=== PATIENT | female | born 1980 | race Caucasian/White ===

== ENCOUNTER 2017-02-15 09:45 | Emergency (ER) | payer MEDICARE, OTHER ==
[~2017-02-15] VITALS: Ht 160 cm; Wt 74.0 kg
[~2017-02-15 09:45] MED LIST: PERM5CRE TOP; PRED20 PO
[2017-02-15 09:51] VITALS: BP 133/81; PULSE 83; RESP 18; TEMP 98; O2SAT 97
--- NOTE | 2017-02-15 10:39 | PD ---
HPI Chief Complaint: Skin Problem Time Seen by Provider: 10:35 Travel History International Travel<30 days: No Contact w/Intl Traveler<30days: No History of Present Illness HPI 36-year-old female presents to the emergency Department with complaint of a lump to her left upper arm that is there for about a month. Denies fever, vomiting. Denies drainage from the site. Has not taken any medications to alleviate her symptoms. Has tried squeezing it to drain it without success. Says that it's itchy. No known allergies. Has no other medical complaints. No other modifying factors or associated signs and symptoms. History Past Medical Histgory Tetanus Vaccination: > 5 Years Social History Alcohol Use: No Tobacco Use: Yes (PPD) Allergies-Medications (Allergen,Severity, Reaction): Coded Allergies: No Known Allergies (Verified , 06/25/16) Reported Meds & Prescriptions Reported Meds & Active Scripts Active Deltasone (Prednisone) 20 Mg Tab 20 Mg PO BID 5 Days Elimite (Permethrin) 5 % Cr 60 Gm TOP DIRECTED PATIENT INSTRUCTIONS: THOROUGHLY MASSAGE ELIMITE (PERMETHRIN) 5% CREAM INTO THE SKIN FROM HEAD TO TOE COVERING ALL EXTERNAL BODY PARTS. THE CREAM SHOULD BE REMOVED BY WASHING (SHOWER OR BATH) 8 TO 14 HOURS AFTER APPLICATION. PATIENTS MAY EXPERIENCE ITCHING AFTER TREATMENT AND IS RARELY A SIGN OF TREATMENT FAILURE. Review of Systems Except as stated in HPI: all other systems reviewed are Neg Physical Exam Narrative GENERAL: Well-nourished, well-developed female patient, in no acute distress; afebrile, nontoxic-appearing SKIN: Warm and dry. Approximately 1 cm in diameter soft lump to the left bicep area; without erythema, drainage; without warm to touch; no signs of infection. HEAD: Atraumatic. Normocephalic. EYES: Pupils equal and round. No scleral icterus. No injection or drainage. ENT: Mucosa pink and moist. Airway patent. NECK: Trachea midline. CARDIOVASCULAR: Regular rate. RESPIRATORY: No accessory muscle use. GASTROINTESTINAL: Rounded. MUSCULOSKELETAL: No obvious deformities. No clubbing. No cyanosis. No edema. NEUROLOGICAL: Awake and alert. Oriented 3. No obvious cranial nerve deficits. Motor grossly within normal limits. Normal speech. PSYCHIATRIC: Appropriate mood and affect; insight and judgment normal. Data Data Last Documented VS Vital Signs Date Time Temp Pulse Resp B/P Pulse Ox O2 Delivery O2 Flow Rate FiO2 02/15/17 09:51 98.0 83 18 133/81 97 Room Air MDM Medical Screen Exam Complete: Yes Emergency Medical Condition: No Differential Diagnosis Basal cell carcinoma, melanoma, nonspecific lump Narrative Course 36-year-old female with a lump to her left bicep area times one month. It is approximately 1 cm in diameter and without signs of infection. The area is nontender. Patient reports it is itchy. She is afebrile and nontoxic- appearing. Denies fever or vomiting. Instructed patient to follow up with dermatology. Vital signs are stable and the patient is stable for outpatient follow-up and treatment. The patient has no urgent or emergent medical complaints. There is no emergent or urgent medical need at this time. I instructed the patient to follow up with their primary care provider. A medical screening exam was performed: At the time of evaluation the presenting medical condition was determined not to be of an emergent nature. The patient was given the option of receiving additional care, but declined. Patient was given options for additional community resources from which to obtain care. The Patient Has Been advised to seek medical attention for their presenting complaint. The patient has been advised to return to the ER at any time if an emergent condition develops. Primary Impression: Encounter for medical screening examination Condition: Stable Blanquita Marie February 15, 2017 10:39
[2017-03-08] MEDS ORDERED: IBUP200C PO (08:59)
[2017-03-08] MEDS ORDERED: CYCL5TAB PO (08:59)
== END 2017-02-15 10:44 | disposition left against medical advice (07) ==
LOC: NEPK 09:45
DX: R22.32 Localized swelling, mass and lump, left upper limb (principal)
CPT/HCPCS: 99281

== ENCOUNTER → 2017-03-31 | Outpatient (CLI) | payer MEDICARE, OTHER ==
[~2017-03-31] MED LIST changes: +CYCL5TAB PO; +IBUP200C PO; -PERM5CRE TOP; -PRED20 PO
[2017-03-31 08:41] LABS: AUTOMATED NEUTROPHIL # 3.7 TH/MM3 (1.8-7.7); BASOPHIL # 0.1 TH/MM3 (0-0.2); BASOPHIL % 0.9 % (0.0-2.0); EOSINOPHIL # 0.5 TH/MM3 (0-0.4); EOSINOPHIL % 6.8 % (0.0-4.0); HEMATOCRIT 37.5 % (35.0-46.0); HEMO FLAGS DIFF FINAL; LYMPH % 31.2 % (9.0-44.0); LYMPHOCYTE # 2.2 TH/MM3 (1.0-4.8); MEAN CELL VOLUME 90.1 FL (80.0-100.0); MEAN CORPUSCULAR HEMOGLOBIN 29.4 PG (27.0-34.0); MEAN CORPUSCULAR HGB CONC 32.6 % (32.0-36.0); MONO % 8.4 % (0.0-8.0); NEUT % 52.7 % (16.0-70.0); PLATELET COUNT 452 TH/MM3 (150-450); RED BLOOD COUNT 4.16 MIL/MM3 (4.00-5.30); RED CELL DISTRIBUTION WIDTH 13.3 % (11.6-17.2)
== END ==
LOC: CPRE 07:57
PROVIDERS: ATTEND Surgery
DX: Z01.812 Encounter for preprocedural laboratory examination (principal); C43.62 Malignant melanoma of left upper limb, including shoulder
CPT/HCPCS: 36415; 85025

== ENCOUNTER 2017-04-08 18:28 | Emergency (ER) | payer MEDICARE, OTHER ==
[~2017-04-08] VITALS: Ht 157.5 cm; Wt 70.0 kg
[2017-04-08 18:30] VITALS: BP 115/59; PULSE 92; RESP 20; TEMP 97.5; O2SAT 98
--- NOTE | 2017-04-08 18:43 | PD ---
Physical Exam Time Seen by Provider: 18:37 Narrative 36yo F requesting reevaluation of her surgical site after removal of melanoma and lymph node removal of L upper arm and armpit today. Surgery done by Dr. Mckeon. Patient unaware of discharge instructions. Was discharged from third floor Same day surgery about an hour ago. Concerned because of bandage in armpit having drainage through it and wants it looked at. Reports nausea w/o vomiting. Denies fever. Patient seen in triage. VS reviewed. Patient awaiting bed placement. Data Data Last Documented VS Vital Signs Date Time Temp Pulse Resp B/P Pulse Ox O2 Delivery O2 Flow Rate FiO2 04/08/17 18:30 97.5 92 20 115/59 98 Room Air MDM Supervised Visit with DILEEP: No Scripts No Active Prescriptions or Reported Meds Blanquita Marie Apr 08, 2017 18:43
--- NOTE | 2017-04-08 20:26 | PD ---
HPI Chief Complaint: Skin Problem Time Seen by Provider: 20:24 Travel History International Travel<30 days: No Contact w/Intl Traveler<30days: No Traveled to known affect area: No History of Present Illness HPI Patient comes emergency Department requesting a dressing be tapered back down from surgery that was done today as an outpatient. Patient states that the dressing is starting to come off and she is wanting it taped back down. Patient denies any pain with this. Patient is doing anything for this. Denies anything making it better or worse. Denies any fevers, chest pain, shortness of breath, or other concerns. Patient states that she was given dressing changes instructions and has a follow-up appointment with her surgeon already. PFSH Past Medical History Cancer: Yes (MELANOMA) Cardiovascular Problems: No Diminished Hearing: No Endocrine: No Genitourinary: No Hepatitis: No Hiatal Hernia: No Immune Disorder: No Musculoskeletal: Yes (MID BACK PAIN) Neurologic: No Psychiatric: Yes ("VERY" NERVOUS) Reproductive: No Respiratory: No Tetanus Vaccination: Never Vaccinated Influenza Vaccination: No ?: Not : 6 Para: 4 Miscarriage: 1 : 1 Tubal Ligation: Yes Past Surgical History Abdominal Surgery: No AICD: No Body Medical Devices: NONE Cardiac Surgery: No Section: Yes (X4) Ear Surgery: No Endocrine Surgery: No Eye Surgery: No Genitourinary Surgery: No Gynecologic Surgery: Yes (4 C SECTION, TL) Joint Replacement: No Oral Surgery: No Pacemaker: No Thoracic Surgery: No Tonsillectomy: Yes Other Surgery: Yes (MELENOMA REMOVED 04/08/17) Social History Alcohol Use: No Tobacco Use: Yes (PPD) Substance Use: No Allergies-Medications (Allergen,Severity, Reaction): Coded Allergies: No Known Allergies (Verified , 04/08/17) Reported Meds & Prescriptions Reported Meds & Active Scripts Active No Active Prescriptions or Reported Medications Review of Systems Except as stated in HPI: all other systems reviewed are Neg Physical Exam Narrative GENERAL: Well-developed, well nourished, in no acute distress, and non-ill appearing. SKIN: Focused skin assessment warm and dry. Patient has dressing over left axilla was scant amount of serosanguineous fluid with a small area that is not taped down. HEAD: Atraumatic. Normocephalic. EYES: Pupils equal and round. EOMI. No scleral icterus. No injection or drainage. ENT: No nasal bleeding or discharge. Mucous membranes pink and moist. NECK: Trachea midline. Supple. No nuclear rigidity. RESPIRATORY: No accessory muscle use. No respiratory distress. MUSCULOSKELETAL: No obvious deformities. No clubbing. No cyanosis. No edema. Full range of motion. NEUROLOGICAL: Awake and alert. No obvious cranial nerve deficits. Motor grossly within normal limits. Normal speech. PSYCHIATRIC: Appropriate mood and affect; insight and judgment normal. Data Data Last Documented VS Vital Signs Date Time Temp Pulse Resp B/P Pulse Ox O2 Delivery O2 Flow Rate FiO2 04/08/17 18:30 97.5 92 20 115/59 98 Room Air Orders Wound Care (04/08/17 20:23) MDM Medical Decision Making Medical Screen Exam Complete: Yes Emergency Medical Condition: No Differential Diagnosis Wound check, dressing change, other Narrative Course Patient in no obvious distress upon re-evaluation. Any questions/concerns in reference to patient diagnosis/condition discussed and clarified prior to patient's discharge. Reinforced sheer importance of close follow up with surgeon. Instructed patient to return to ED immediately, if symptoms return/ worsen. Pt showed understanding of above instructions. Further instructions and recommendations were detailed in discharge paperwork. Pt ambulated without difficulty out of ED at discharge. Diagnosis Primary Impression: Encounter for postoperative wound check Additional Instructions: Follow-up with your surgeon as scheduled. Do wound care and dressing changes as instructed by your surgeon. Return to the emergency department if symptoms get worse. Scripts No Active Prescriptions or Reported Meds Disposition: 01 DISCHARGE HOME Condition: Stable Mal Aly Apr 08, 2017 20:26
== END 2017-04-08 20:42 | disposition home or self-care (01) ==
LOC: NEPD 18:28
DX: Z51.89 Encounter for other specified aftercare (principal); C43.9 Malignant melanoma of skin, unspecified; F17.200 Nicotine dependence, unspecified, uncomplicated
CPT/HCPCS: 99281

== ENCOUNTER → 2017-04-08 | Day surgery (SDC) | payer MEDICARE, OTHER ==
[~2017-04-08] VITALS: Ht 157.5 cm; Wt 74.2 kg
[~2017-04-08] MED LIST changes: +ACETAMINOPHEN 1000 MG/100 ML VIAL IV SCH; +BACITRACIN TOP OINT 15 GM TUBE ONE; +BACT800T5 PO; +BUPIVACAINE/EPINEPHRINE 0.5% 50 ML VIAL ONE; +CHLORHEXIDINE GLUCONATE 2 % 1 PACK (2 CLOTHS) TOPICAL PRN; -CYCL5TAB PO; +DO NOT ADM ANY ANTICOAGULANT DRUGS PRN; +DOXY100C PO; +EPINEPHrine HCL (1:1000) 1 MG/ML VIAL ONE; +FAMOTIDINE 20 MG/2 ML VIAL ONE; +HYDR-3533 PO; -IBUP200C PO; +INSULIN HUMAN REGULAR 1,000 UNITS/10 ML VIAL SQ PRN; +KETO10 PO; +KETOROLAC TROMETHAMINE 30 MG/ML (IVP) VIAL IV PUSH ONE; +KETOROLAC TROMETHAMINE 60 MG/2 ML (IM) VIAL IM ONE; +LACTATED RINGER'S 1000 ML INJ 1,000 ML IV ONE; +LACTATED RINGER'S 1000 ML IV PRN; +LIDOCAINE 1%/EPINEPHrine 1:100,000 SOLN 20 ML VIAL ONE; +METOPROLOL TARTRATE 25 MG TAB PO PRN; +MIDAZOLAM HCL 2 MG/2 ML VIAL ONE; +MINERAL OIL 10 ML VIAL ONE; +MORPHINE SULFATE 4 MG/ML INJ IV PRN; +MORPHINE SULFATE 4 MG/ML INJ ONE; +NEOSTIGMINE 3 MG/3 ML SYR IV ONE; +ONDANSETRON HCL 4 MG/2 ML VIAL IV PRN; +ONDANSETRON HCL 4 MG/2 ML VIAL IV PUSH ONE; +PERC5TAB12 PO; +POVIDONE IODINE 5% (ANTISEPSIS KIT) 4 APPLICATIONS EACH NARE PRN; +PROPOFOL 200 MG/20 ML AMP IV ONE; +SODIUM BICARBONATE 8.4% INJ 50 ML ONE; +SODIUM CHLORID 0.9% 500 ML IV PRN; +ceFAZolin 2 GM PREMIX 50 ML IV SCH; +fentaNYL CITRATE 250 MCG/5 ML AMP ONE; +oxyCODONE/ACETAMINOPHEN 5 MG/325 MG TAB PO PRN
[2017-04-08 07:32] VITALS: BP 147/92; PULSE 70; RESP 16; TEMP 98.1; O2SAT 100
--- NOTE | 2017-04-08 09:56 | RADRPT ---
EXAM DATE/TIME: 04/08/2017 08:10 [facility] COMPARISON: No previous studies available for comparison. INDICATIONS : Left upper arm melanoma. DOSE: 1.1 mCi Tc99m Sulfur Colloid INJECTION SITE: Left Upper arm IMAGING: SPECT/CT imaging with fusion was performed. RADIATION DOSE: 2.95 CTDIvol (mGy) MEDICAL HISTORY : Melanoma. SURGICAL HISTORY : Tonsillectomy. Tubal ligation. section. ENCOUNTER: Initial ACUITY: 1 day PAIN SCALE: 0/10 LOCATION: Left arm TECHNIQUE: Multiple injections were made per protocol. Lymphangiogram phase was obtained in addition to delayed spot views. FINDINGS: Focal hypermetabolic activity was noted in the left axillary area. This was marked prior to surgery. CONCLUSION: Left axillary area was marked. Tono Lopez MD on April 08, 2017 at 9:54 Board Certified Radiologist. This report was verified electronically.
[2017-04-08 14:57] VITALS: BP 117/74; PULSE 62; RESP 16; TEMP 97.4; O2SAT 100
--- NOTE | 2017-05-03 10:51 | PD.CONS ---
General Surgery Consult Operative Report Date of Surgery: Apr 08, 2017 Preoperative Diagnosis: Malignant melanoma left upper extremity Postoperative Diagnosis: Malignant melanoma left upper extremity Procedure: 1. Wide excision melanoma left upper extremity with primary closure. 2. Left axillary dissection with sentinel lymph node biopsy Anesthesia: Gen. endotracheal Surgeon: Julius Mckeon Jammer Hooker(s): ALBER Esparza Operation and Findings: Operative findings and procedure: The patient was brought to the operating room after having undergone nuclear injection for sentinel node identification area and after lymphoscintigraphy identified the node in question she was brought to the operating room and placed under satisfactory general endotracheal anesthesia. The left axilla and arm were prepped and draped sterilely as well as the anterior portion of the left thigh. 0.5% Marcaine with epinephrine was used to infiltrate the skin for local anesthesia. An infra-axillary incision was made and carried out sharply through subcutaneous use tissue with cautery being used for hemostasis. Incision was deepened into the axilla proper by incising the clavipectoral fascia. With that palpable lymph node was identified and was seen to contain a large amount of radioactivity. The x-ray contents were then more excessively palpated and several nodes were identified. The x-ray contents were grasped with an Allis clamp and using the harmonic scalpel the axilla was cleaned of any palpable adenopathy. The dissection was carried superiorly to the axillary vein which was identified and preserved. The dissection was also taken medially to the chest wall and laterally to the anterior border latissimus dorsi. After cleaning out the axillar contents of all palpable lymph nodes along with the surrounding tissue the sentinel node was identified as the one with the highest radioactivity and was marked with a 2 -0 silk suture. The area was made hemostatic after which the subcutaneous cutaneous tissue was closed with interrupted 3-0 Vicryl suture and the skin closed with interrupted 4 -0 PDS subcutaneous stitches. The attention was then turned to the arm. It was decided to attempt a wide excision with primary closure. 2 cm margin was marked around the previous biopsy site the lateral aspect of the left upper extremity. 0.5% Marcaine with epinephrine was also infiltrated into the skin for local anesthesia. The elliptical skin incision was then made and carried out sharply through subcutaneous use tissue with cautery being used for hemostasis. The area of skin and subcutaneous cutaneous tissue was dissected free with the cautery and marked for future margins with silk sutures and sent for permanent pathology. Hemostasis was strictly assured after which further 0.5% Marcaine with epinephrine was infiltrated in the surrounding tissues and the subcutaneous tissues tissue was then extensively undermined.. Although the tissue was somewhat tight in the middle was decided to attempt a primary closure. Initial dermal sutures were placed using 0 Vicryl in several areas to bring the dermis into approximation. 2-0 Vicryl was then used for the remainder of the dermal sutures. Although there was slight amount of ischemic stressed to the surrounding tissues in the midportion incision was decided to complete the repair in this fashion without a skin graft. The skin was then stapled closed and a sterile dressing placed. Primapore dressing was placed on the axillary incision after Steri-Strips were then applied. Patient was then awakened and taken from the operating room, in satisfactory condition, having tolerated the procedure without problem. Estimated blood loss was less than 20 mL's. The instrument, sponge, and needle counts were reported as being correct 2 at the end of the procedure. Julius Mckeon MD Apr 08, 2017 13:17 <Electronically signed by Julius Mckeon MD> 04/08/17 1317 Julius Mckeon MD May 03, 2017 10:51
== END | disposition home or self-care (01) ==
LOC: HSDC 06:21
PROVIDERS: ATTEND Surgery
DX: C43.62 Malignant melanoma of left upper limb, including shoulder (principal); C77.3 Secondary and unspecified malignant neoplasm of axilla and upper limb lymph nodes; F17.200 Nicotine dependence, unspecified, uncomplicated
CPT/HCPCS: 00400; 11600; 38525; 38790; 78195; 88305; 88307; 88341; 88342; A9541; J0131; J0171; J0690; J1885; J2250; J2270; J2405; J2710; J3010; J7120

== ENCOUNTER 2017-04-09 15:10 | Emergency (ER) | payer MEDICARE, OTHER ==
[~2017-04-09] VITALS: Ht 165.1 cm; Wt 70.0 kg
[2017-04-09 15:12] VITALS: BP 137/76; PULSE 86; RESP 15; TEMP 98.4; O2SAT 98
--- NOTE | 2017-04-09 15:49 | PD ---
HPI Chief Complaint: Wound/Suture/Staple Re-Check Time Seen by Provider: 15:32 Travel History International Travel<30 days: No Contact w/Intl Traveler<30days: No Traveled to known affect area: No History of Present Illness HPI Patient is a 36-year-old female who presents to emergency room for wound evaluation as she is status post day 1 if melanoma resection to her left arm as well as her left axilla. Patient reports that yesterday, her regulatory law specialist removed concerning areas of skin with melanoma. Reports that she was seen in the emergency room last night as her dressings fell off, that she was not sent home with any dressings. Patient presents to emergency room for wound evaluation as well as for dressing change. Patient requesting supply of dressings for her wound as she was not sent home with them yesterday. Patient with no fevers or chills, no other complaints. PFSH Past Medical History Cancer: Yes (MELANOMA) Cardiovascular Problems: No Diminished Hearing: No Endocrine: No Genitourinary: No Hepatitis: No Hiatal Hernia: No Immune Disorder: No Musculoskeletal: Yes (MID BACK PAIN) Neurologic: No Psychiatric: Yes ("VERY" NERVOUS) Reproductive: No Respiratory: No : 6 Para: 4 Miscarriage: 1 : 1 Tubal Ligation: Yes Past Surgical History Abdominal Surgery: No AICD: No Body Medical Devices: NONE Cardiac Surgery: No Section: Yes (X4) Ear Surgery: No Endocrine Surgery: No Eye Surgery: No Genitourinary Surgery: No Gynecologic Surgery: Yes (4 C SECTION, TL) Joint Replacement: No Oral Surgery: No Pacemaker: No Thoracic Surgery: No Tonsillectomy: Yes Other Surgery: Yes (MELENOMA REMOVED 04/08/17) Social History Alcohol Use: No Tobacco Use: Yes (PPD) Substance Use: No Allergies-Medications (Allergen,Severity, Reaction): Coded Allergies: No Known Allergies (Verified , 04/08/17) Reported Meds & Prescriptions Reported Meds & Active Scripts Active No Active Prescriptions or Reported Medications Review of Systems General / Constitutional: No: Fever Eyes: No: Visual changes HENT: No: Headaches Cardiovascular: No: Chest Pain or Discomfort Respiratory: No: Shortness of Breath Gastrointestinal: No: Abdominal Pain Genitourinary: No: Dysuria Musculoskeletal: No: Pain Skin: No Rash Neurologic: No: Weakness Psychiatric: No: Depression Endocrine: No: Polydipsia Hematologic/Lymphatic: No: Easy Bruising Physical Exam Narrative GENERAL: Well-nourished, well-developed patient. SKIN: Focused skin assessment warm/dry. Dressings removed from her left arm as well as her left axilla, left axilla with no drainage or erythema, no signs of infection, left upper arm : sutures in place, area is clean/dry/intact with no drainage or no redness/ cellulitis HEAD: Normocephalic. EYES: No scleral icterus. No injection or drainage. NECK: Supple, trachea midline. No JVD or lymphadenopathy. CARDIOVASCULAR: Regular rate and rhythm without murmurs, gallops, or rubs. RESPIRATORY: Breath sounds equal bilaterally. No accessory muscle use. GASTROINTESTINAL: Abdomen soft, non-tender, nondistended. MUSCULOSKELETAL: No cyanosis, or edema. BACK: Nontender without obvious deformity. No CVA tenderness. Data Data Last Documented VS Vital Signs Date Time Temp Pulse Resp B/P Pulse Ox O2 Delivery O2 Flow Rate FiO2 04/09/17 15:12 98.4 86 15 137/76 98 [facility] Medical Decision Making Medical Screen Exam Complete: Yes Emergency Medical Condition: Yes Interpretation(s) Vital Signs Date Time Temp Pulse Resp B/P Pulse Ox O2 Delivery O2 Flow Rate FiO2 04/09/17 15:12 98.4 86 15 137/76 98 Differential Diagnosis Differential includes wound infection versus postop changes Narrative Course 36-year-old female who had melanoma removed from her left arm as well as her left axilla yesterday, patient here for wound evaluation as well as for dressings. Patient was not sent home with supplies yesterday and request wounds to be redressed in the ER and request supply of dressings. Dressings removed, patient with no signs of infection. Will redress wounds, will have patient follow up with her regulatory law specialist and return to emergency room as needed. Signs and symptoms of when to return to emergency room was reviewed patient in detail. Diagnosis Primary Impression: Encounter for postoperative wound check Patient Instructions: General Instructions Additional Instructions: Please of the regulatory law specialist as scheduled Return to emergency room if develop any signs of infection Keep wounds covered and clean Change dressings twice a day Scripts No Active Prescriptions or Reported Meds Disposition: 01 DISCHARGE HOME Condition: Stable Bisi Celis DO Apr 09, 2017 15:49
== END 2017-04-09 16:39 | disposition home or self-care (01) ==
LOC: NEPD 15:10
DX: Z48.02 Encounter for removal of sutures (principal)
CPT/HCPCS: 99281

== ENCOUNTER 2017-04-16 20:27 | Inpatient (IN) | payer MEDICARE, OTHER ==
[~2017-04-16] VITALS: Ht 157.5 cm; Wt 70.0 kg
[2017-04-16 20:30] VITALS: BP 129/81; PULSE 117; RESP 15; TEMP 98.8; O2SAT 98
[2017-04-16] MEDS ORDERED: HYDR-3533 PO (23:14)
[2017-04-16] MEDS ORDERED: KETO10 PO (23:14)
[2017-04-16] MEDS ORDERED: ONDANSETRON HCL 4 MG/2 ML VIAL IV PUSH ONE (23:45)
[2017-04-16] MEDS ORDERED: HYDROmorphone HCL PF 1 MG/ML VIAL IVS ONE (23:45)
[2017-04-16] MEDS ORDERED: SODIUM CHLOR 0.9% 1000 ML INJ 1,000 ML IV ONE (23:45)
[2017-04-16] MEDS ORDERED: MORPHINE SULFATE 4 MG/ML INJ IV PUSH PRN (23:45)
[2017-04-16] MEDS ORDERED: ONDANSETRON HCL 4 MG/2 ML VIAL IV PUSH PRN (23:45)
[2017-04-16] MEDS ORDERED: ONDANSETRON HCL 4 MG/2 ML VIAL IV ONE (23:45)
--- NOTE | 2017-04-16 23:51 | PD ---
HPI Chief Complaint: Skin Problem Time Seen by Provider: 23:23 Travel History International Travel<30 days: No Contact w/Intl Traveler<30days: No Traveled to known affect area: No History of Present Illness HPI Is a 36 year-old woman who presents to the emergency department with pain redness swelling and tenderness other if her left arm. Some subjective chills but no definite fevers. She had surgery done on April 08, removal of malignant melanoma on the left arm with wide excision as well as lymph node removal in the left axilla. She's been having worsening pain redness and swelling over the past several days. It is gotten progressively more tender. History Past Medical History Narrative Medical Recent malignant melanoma : 6 Para: 4 Social History Alcohol Use: No Tobacco Use: Yes (PPD) Allergies-Medications (Allergen,Severity, Reaction): Coded Allergies: No Known Allergies (Verified , 04/16/17) Reported Meds & Prescriptions Reported Meds & Active Scripts Active Reported Lortab (Hydrocodone-Acetaminophen) 5-325 Mg Tab 1 Tab PO Q4H PRN Ketorolac (Ketorolac Tromethamine) 10 Mg Tab 10 Mg PO Q6HR PRN Review of Systems Except as stated in HPI: all other systems reviewed are Neg Physical Exam Narrative GENERAL: 36 year-old woman, appears uncomfortable but not toxic. SKIN: Focused skin assessment warm/dry. NECK: Trachea midline. No JVD. CARDIOVASCULAR: Heart rate rapid, regular, no appreciable murmurs. RESPIRATORY: No accessory muscle use. Clear to auscultation. Breath sounds equal bilaterally. GASTROINTESTINAL: Abdomen soft, non-tender, nondistended. Hepatic and splenic margins not palpable. MUSCULOSKELETAL: No obvious deformities. The left deltoid wound is well approximated well-healing. The axillary wound is erythematous and red with induration and fluctuance towards the anterior aspect. There is obvious purulence below the skin on the anterior aspect of the wound. There is no active drainage now. There is a marked amount of surrounding inflammation. NEUROLOGICAL: Awake and alert. No obvious cranial nerve deficits. Motor grossly within normal limits. Normal speech. PSYCHIATRIC: Appropriate mood and affect; insight and judgment normal. Data Data Last Documented VS Vital Signs Date Time Temp Pulse Resp B/P Pulse Ox O2 Delivery O2 Flow Rate FiO2 04/16/17 23:29 16 04/16/17 20:30 98.8 117 129/81 98 Room Air Orders Complete Blood Count With Diff (04/16/17 23:32) Comprehensive Metabolic Panel (04/16/17 23:32) Iv Access Insert/Monitor (04/16/17 23:32) Wound Culture And Gram Stain (04/16/17 23:32) Sodium Chlor 0.9% 1000 Ml Inj (Ns 1000 M (04/16/17 23:45) Hydromorphone Pf Inj (Dilaudid Pf Inj) (04/16/17 23:45) Ondansetron Inj (Zofran Inj) (04/16/17 23:45) Clindamycin Inj (Cleocin Inj) (04/16/17 23:45) Morphine Inj (Morphine Inj) (04/16/17 23:45) Ondansetron Inj (Zofran Inj) (04/16/17 23:45) Ondansetron Inj (Zofran Inj) (04/16/17 23:45) Sodium Chlor 0.9% 1000 Ml Inj (Ns 1000 M (04/16/17 23:45) NPO (04/16/17 23:38) Admit Order (Ed Use Only) (04/16/17 ) Activity Oob Ad Jennifer (04/16/17 23:38) Labs Laboratory Tests Test 04/16/17 23:40 White Blood Count 20.3 TH/MM3 Red Blood Count 4.45 MIL/MM3 Hemoglobin 13.3 GM/DL Hematocrit 39.4 % Mean Corpuscular Volume 88.5 FL Mean Corpuscular Hemoglobin 29.9 PG Mean Corpuscular Hemoglobin 33.8 % Concent Red Cell Distribution Width 12.6 % Platelet Count 570 TH/MM3 Mean Platelet Volume 8.0 FL Neutrophils (%) (Auto) 76.3 % Lymphocytes (%) (Auto) 14.4 % Monocytes (%) (Auto) 8.0 % Eosinophils (%) (Auto) 0.8 % Basophils (%) (Auto) 0.5 % Neutrophils # (Auto) 15.5 TH/MM3 Lymphocytes # (Auto) 2.9 TH/MM3 Monocytes # (Auto) 1.6 TH/MM3 Eosinophils # (Auto) 0.2 TH/MM3 Basophils # (Auto) 0.1 TH/MM3 CBC Comment DIFF FINAL Differential Comment Sodium Level 132 MEQ/L Potassium Level 3.4 MEQ/L Chloride Level 99 MEQ/L Carbon Dioxide Level 23.8 MEQ/L Anion Gap 9 MEQ/L Blood Urea Nitrogen 13 MG/DL Creatinine 0.77 MG/DL Estimat Glomerular Filtration 84 ML/MIN Rate Random Glucose 109 MG/DL Calcium Level 9.4 MG/DL Aspartate Amino Transf 21 U/L (AST/SGOT) Albumin 3.7 GM/DL [facility] Medical Decision Making Medical Screen Exam Complete: Yes Emergency Medical Condition: Yes Interpretation(s) LABS: CBC remarkable for white count 20,000, platelet count of 570. CMP Differential Diagnosis Postop infection, cellulitis, abscess, other Narrative Course Medical decision making A 36 year-old woman presents emergent department infection to the left axilla. The amount of infection is fairly prominent. She is tachycardic as well with subjective chills. We'll check labs, IV antibiotics. I spoke with Dr. Mullins, on-call for Dr. chao. He is agreeable to us opening up the anterior aspect of the wound, and admission for IV antibiotics. Procedures Procedure Narrative Wound debridement: Went back and reassess, the small area anteriorly had started to drain a small amount of purulent drainage. Q-tip was applied into the wound to take a culture. The wound was opened up to about a centimeter or so in size. Copious amount of purulent drainage was expressed. Diagnosis Primary Impression: Postoperative cellulitis of surgical wound Admitting Information Admitting Physician Requests: Observation Brian Velasquez MD Apr 16, 2017 23:51
[2017-04-17] VITALS (7 sets, daily range): BP systolic 98–123; BP diastolic 55–73; PULSE 88–111; RESP 16–19; TEMP 97.3–99.4; O2SAT 95–96
[2017-04-17 00:13] LABS: AUTOMATED NEUTROPHIL # 15.5 TH/MM3 (1.8-7.7); BASOPHIL # 0.1 TH/MM3 (0-0.2); BASOPHIL % 0.5 % (0.0-2.0); EOSINOPHIL # 0.2 TH/MM3 (0-0.4); EOSINOPHIL % 0.8 % (0.0-4.0); HEMATOCRIT 39.4 % (35.0-46.0); HEMO FLAGS DIFF FINAL; LYMPH % 14.4 % (9.0-44.0); LYMPHOCYTE # 2.9 TH/MM3 (1.0-4.8); MEAN CELL VOLUME 88.5 FL (80.0-100.0); MEAN CORPUSCULAR HEMOGLOBIN 29.9 PG (27.0-34.0); MEAN CORPUSCULAR HGB CONC 33.8 % (32.0-36.0); NEUT % 76.3 % (16.0-70.0); PLATELET COUNT 570 TH/MM3 (150-450); RED BLOOD COUNT 4.45 MIL/MM3 (4.00-5.30); RED CELL DISTRIBUTION WIDTH 12.6 % (11.6-17.2); WHITE BLOOD COUNT 20.3 TH/MM3 (4.0-11.0)
[2017-04-17] MEDS: CLINDAMYCIN INJ 600 MG in SODIUM CHLORIDE 0.9% INJ 100 ML IV SCH ×2 (00:18→08:03)
[2017-04-17 00:34] LABS: ANION GAP 9 MEQ/L (5-15); AST (GOT) 21 U/L (15-37); BICARBONATE 23.8 MEQ/L (21.0-32.0); BLOOD UREA NITROGEN 13 MG/DL (7-18); CHLORIDE 99 MEQ/L (98-107); GLOMERULAR FILTRATION RATE 84 ML/MIN (>89); POTASSIUM 3.4 MEQ/L (3.5-5.1); SODIUM (NA) 132 MEQ/L (136-145)
[2017-04-17 00:35] LABS: ALT (GPT) 42 U/L (10-53)
[2017-04-17] MEDS ORDERED: MORPHINE SULFATE 8 MG/ML INJ ONE (00:35)
[2017-04-17 00:37] LABS: ALKALINE PHOSPHATASE 148 U/L (45-117); TOTAL BILIRUBIN ADULT 0.9 MG/DL (0.2-1.0)
[2017-04-17] MEDS: SODIUM CHLOR 0.9% 1000 ML INJ 1,000 ML IV SCH ×4 (00:55→21:50)
[2017-04-17] MEDS: MORPHINE SULFATE 8 MG/ML INJ IV PUSH PRN ×3 (05:57→16:07)
[2017-04-17] MEDS ORDERED: MISCELLANEOUS NURSING INFORMATION ONE (09:00)
[2017-04-17] MEDS ORDERED: oxyCODONE/ACETAMINOPHEN 5 MG/325 MG TAB PO PRN (12:00)
[2017-04-17] MEDS ORDERED: SODIUM CHLORIDE 0.9% FLUSH 10 ML FLUSH IV FLUSH PRN (12:00)
[2017-04-17] MEDS ORDERED: HYDROmorphone HCL PF 1 MG/ML VIAL IV PUSH PRN (12:00)
--- NOTE | 2017-04-17 12:15 | MH ---
cc: POONAM LÓPEZ DATE OF ADMISSION: 04/17/2017 HISTORY OF PRESENT ILLNESS: This is a 36-year-old female with history melanoma of the left arm. She underwent removal of a melanoma with left axillary dissection on April [address] Mckeon. She was doing well initially and then began experiencing increased axillary pain as well as warmth on the left at the operative site. As a result, she presented to the emergency room. On evaluation by the emergency room physician, she has some purulent drainage in the corner of the incision that was expressed and thought to have an abscess. She was started IV antibiotics. Culture was sent. The patient complains of pain. She states it is better than it was yesterday. She denies fevers or chills. PAST MEDICAL HISTORY Her past medical history is significant for above. PAST SURGICAL HISTORY: Her past surgical history is significant for above. MEDICATIONS: She is on no chronic medications. ALLERGIES: SHE HAS NO KNOWN DRUG ALLERGIES. SOCIAL HISTORY: She does smoke. She denies alcohol use. FAMILY HISTORY: Noncontributory. REVIEW OF SYSTEMS: Significant for the above and all other review negative. PHYSICAL EXAMINATION: GENERAL: On exam, she is in no acute distress. HEAD, EYES, EARS, NOSE, THROAT: Pupils are equal and reactive. NECK: Without jugular venous distention. RESPIRATIONS: Clear. CARDIOVASCULAR: Regular. GASTROINTESTINAL: Soft and nontender. MUSCULOSKELETAL: No deformities. NEUROLOGICAL: Nonfocal. EXTREMITIES: Left arm incision is clean, dry and intact. Left axilla with erythema surrounding her incision and tenderness to palpation. ASSESSMENT: This is a patient status post wide excision of melanoma with axillary dissection now with an abscess. The abscess was reportedly expressed. PLAN: 1. The patient was started on clindamycin. 2. We will change to vancomycin. 3. Will obtain ultrasound in the a.m. 4. Will provide pain management. MD DEBBI Galeana/ANTHONY /12:04 PM /12:13 PM
[2017-04-17] MEDS: VANCOMYCIN INJ 1,000 MG in SODIUM CHLOR 0.9% 250 ML INJ 250 ML IV SCH (12:35)
[2017-04-17 13:12] LABS: AUTOMATED NEUTROPHIL # 15.5 TH/MM3 (1.8-7.7); BASOPHIL # 0.1 TH/MM3 (0-0.2); BASOPHIL % 0.3 % (0.0-2.0); EOSINOPHIL # 0.3 TH/MM3 (0-0.4); EOSINOPHIL % 1.8 % (0.0-4.0); HEMO FLAGS DIFF FINAL; LYMPH % 8.5 % (9.0-44.0); LYMPHOCYTE # 1.6 TH/MM3 (1.0-4.8); MEAN CELL VOLUME 89.2 FL (80.0-100.0); MEAN CORPUSCULAR HEMOGLOBIN 30.6 PG (27.0-34.0); MEAN CORPUSCULAR HGB CONC 34.3 % (32.0-36.0); MONO % 7.7 % (0.0-8.0); NEUT % 81.7 % (16.0-70.0); PLATELET COUNT 450 TH/MM3 (150-450); RED CELL DISTRIBUTION WIDTH 13.2 % (11.6-17.2)
[2017-04-17] MEDS: oxyCODONE/ACETAMINOPHEN 10 MG/325 MG TAB PO PRN (21:49)
[2017-04-17] MEDS: SODIUM CHLORIDE 0.9% FLUSH 10 ML FLUSH IV FLUSH SCH (21:50)
[2017-04-18] MEDS: VANCOMYCIN INJ 1,000 MG in SODIUM CHLOR 0.9% 250 ML INJ 250 ML IV SCH ×2 (01:29→13:14)
[2017-04-18 04:13] VITALS: BP 102/57; PULSE 89; RESP 18; TEMP 98.8; O2SAT 94
[2017-04-18] MEDS: oxyCODONE/ACETAMINOPHEN 10 MG/325 MG TAB PO PRN ×3 (04:19→20:22)
[2017-04-18 07:23] VITALS: BP 108/66; PULSE 85; RESP 16; TEMP 98.2; O2SAT 96
[2017-04-18 08:26] LABS: AUTOMATED NEUTROPHIL # 10.5 TH/MM3 (1.8-7.7); BASOPHIL % 0.3 % (0.0-2.0); EOSINOPHIL # 0.5 TH/MM3 (0-0.4); EOSINOPHIL % 3.4 % (0.0-4.0); HEMATOCRIT 31.6 % (35.0-46.0); HEMO FLAGS DIFF FINAL; LYMPH % 11.9 % (9.0-44.0); LYMPHOCYTE # 1.6 TH/MM3 (1.0-4.8); MEAN CELL VOLUME 90.3 FL (80.0-100.0); MEAN CORPUSCULAR HEMOGLOBIN 29.1 PG (27.0-34.0); MEAN CORPUSCULAR HGB CONC 32.3 % (32.0-36.0); MONO % 6.8 % (0.0-8.0); NEUT % 77.6 % (16.0-70.0); PLATELET COUNT 419 TH/MM3 (150-450); RED CELL DISTRIBUTION WIDTH 13.3 % (11.6-17.2); WHITE BLOOD COUNT 13.6 TH/MM3 (4.0-11.0)
[2017-04-18 08:57] LABS: ALKALINE PHOSPHATASE 139 U/L (45-117); ALT (GPT) 37 U/L (10-53); ANION GAP 8 MEQ/L (5-15); AST (GOT) 27 U/L (15-37); BICARBONATE 23.7 MEQ/L (21.0-32.0); BLOOD UREA NITROGEN 4 MG/DL (7-18); CHLORIDE 107 MEQ/L (98-107); GLOMERULAR FILTRATION RATE 174 ML/MIN (>89); POTASSIUM 3.5 MEQ/L (3.5-5.1); SODIUM (NA) 139 MEQ/L (136-145); TOTAL BILIRUBIN ADULT 0.4 MG/DL (0.2-1.0)
[2017-04-18] MEDS: PANTOPRAZOLE SODIUM 40 MG VIAL IV SCH (09:06)
[2017-04-18] MEDS: SODIUM CHLORIDE 0.9% FLUSH 10 ML FLUSH IV FLUSH SCH ×2 (09:09→21:00)
[2017-04-18] MEDS: SODIUM CHLOR 0.9% 1000 ML INJ 1,000 ML IV SCH ×2 (09:09→15:45)
[2017-04-18] MEDS ORDERED: PNEUMOCOCCAL POLYVALENT INJ 25 MCG/0.5 ML SYR IM ONE (10:00)
[2017-04-18 11:40] VITALS: BP 111/63; PULSE 74; RESP 16; TEMP 97.9; O2SAT 97
--- NOTE | 2017-04-18 12:51 | RADRPT ---
EXAM DATE/TIME: 04/18/2017 08:21 [facility] COMPARISON: No previous studies available for comparison. INDICATIONS : Abscess. MEDICAL HISTORY : Skin cancer. SURGICAL HISTORY : Tonsillectomy. section. Tubal ligation. ENCOUNTER: Initial ACUITY: 4-6 days PAIN SCORE: 7/10 LOCATION: Left axillary. AREA EVALUATED: Left axillary. FINDINGS: MASSES: None. FLUID COLLECTIONS: None. OTHER: Negative. CONCLUSION: No drainable fluid in the left axilla. Ultrasound guided aspiration was not performed. Giovani Oliva MD on April 18, 2017 at 12:49 Board Certified Radiologist. This report was verified electronically.
[2017-04-18 16:25] VITALS: BP 112/70; PULSE 86; RESP 15; TEMP 98.2; O2SAT 97
[2017-04-18 19:32] VITALS: BP 109/62; PULSE 96; RESP 17; TEMP 97.8; O2SAT 97
[2017-04-19] MEDS: SODIUM CHLOR 0.9% 1000 ML INJ 1,000 ML IV SCH ×2 (00:42→09:05)
[2017-04-19] MEDS: VANCOMYCIN INJ 1,000 MG in SODIUM CHLOR 0.9% 250 ML INJ 250 ML IV SCH (00:43)
[2017-04-19 01:42] VITALS: BP 115/72; PULSE 74; RESP 19; TEMP 97.4; O2SAT 98
[2017-04-19 08:00] VITALS: BP 122/76; PULSE 79; RESP 16; TEMP 97.3; O2SAT 97
[2017-04-19] MEDS: SODIUM CHLORIDE 0.9% FLUSH 10 ML FLUSH IV FLUSH SCH (09:00)
[2017-04-19] MEDS: PANTOPRAZOLE SODIUM 40 MG VIAL IV SCH (09:04)
[2017-04-19] MEDS: oxyCODONE/ACETAMINOPHEN 10 MG/325 MG TAB PO PRN (09:04)
--- NOTE | 2017-04-19 11:47 | HHI.PR ---
Subjective Subjective Notes The patient feels much better with decreased, though persistent pain. She has occasional drainage but overall is more comfortable. She has her appetite back and has been out of bed without problem. Objective Vitals/I&O Vital Signs Date Time Temp Pulse Resp B/P Pulse Ox O2 Delivery O2 Flow Rate FiO2 04/19/17 08:00 97.3 79 16 122/76 97 04/16/17 20:30 Room Air Labs Date/Time Procedure Status Source Growth 04/17/17 00:30 Gram Stain - Final Complete Wound Arm 04/17/17 00:30 Wound Culture - Final Complete Staphylococcus Aureus Cardiovascular: Regular Lungs: Clear Abdomen: Non-distended, Non-tender, BS normal Wound Wound : Wound Location: Left arm Appearance: Erythema Drainage: Cloudy Dressing: Dry A/P Assessment and Plan Postoperative wound infection left axilla, improving. Patient be discharged today on 10 day course of antibiotics. I'll see her back next week in the office. Julius Mckeon MD Apr 19, 2017 11:47
[2017-04-19 12:00] VITALS: BP 117/71; PULSE 67; RESP 17; TEMP 96.3; O2SAT 97
== END 2017-04-19 14:18 | disposition home or self-care (01) | DRG 863 ==
LOC: NEPC 20:27 → NEDA 23:42 → NEPHCDU 04-17 01:04 → OBSVTOIN 04-17 11:55 → N07B 04-19 01:17
PROVIDERS: ADMIT Surgery; ATTEND Surgery
PROC: 0X953ZX Drainage of Left Axilla, Percutaneous Approach, Diagnostic (ICD-10-PCS; principal; 2017-04-16)
DX: T81.4XXA Infection following a procedure, initial encounter (principal); B95.61 Methicillin susceptible Staphylococcus aureus infection as the cause of diseases classified elsewhere; F17.210 Nicotine dependence, cigarettes, uncomplicated; Z85.820 Personal history of malignant melanoma of skin; Z23 Encounter for immunization
CPT/HCPCS: 76882; 76937; 80053; 85025; 86403; 87070; 87147; 87185; 87186; 87205; 90732; C9113; J1170; J2270; J2405; J3370; J7030; J7050

== ENCOUNTER 2017-04-28 23:43 | Emergency (ER) | payer MEDICARE, OTHER ==
[~2017-04-28] VITALS: Ht 165.1 cm; Wt 71.0 kg
[~2017-04-28 23:43] MED LIST changes: -ACETAMINOPHEN 1000 MG/100 ML VIAL IV SCH; -BACITRACIN TOP OINT 15 GM TUBE ONE; -BACT800T5 PO; -BUPIVACAINE/EPINEPHRINE 0.5% 50 ML VIAL ONE; -CHLORHEXIDINE GLUCONATE 2 % 1 PACK (2 CLOTHS) TOPICAL PRN; -DO NOT ADM ANY ANTICOAGULANT DRUGS PRN; -DOXY100C PO; -EPINEPHrine HCL (1:1000) 1 MG/ML VIAL ONE; -FAMOTIDINE 20 MG/2 ML VIAL ONE; -INSULIN HUMAN REGULAR 1,000 UNITS/10 ML VIAL SQ PRN; -KETOROLAC TROMETHAMINE 30 MG/ML (IVP) VIAL IV PUSH ONE; -KETOROLAC TROMETHAMINE 60 MG/2 ML (IM) VIAL IM ONE; -LACTATED RINGER'S 1000 ML INJ 1,000 ML IV ONE; -LACTATED RINGER'S 1000 ML IV PRN; -LIDOCAINE 1%/EPINEPHrine 1:100,000 SOLN 20 ML VIAL ONE; -METOPROLOL TARTRATE 25 MG TAB PO PRN; -MIDAZOLAM HCL 2 MG/2 ML VIAL ONE; -MINERAL OIL 10 ML VIAL ONE; -MORPHINE SULFATE 4 MG/ML INJ IV PRN; -MORPHINE SULFATE 4 MG/ML INJ ONE; -NEOSTIGMINE 3 MG/3 ML SYR IV ONE; -ONDANSETRON HCL 4 MG/2 ML VIAL IV PRN; -ONDANSETRON HCL 4 MG/2 ML VIAL IV PUSH ONE; -PERC5TAB12 PO; -POVIDONE IODINE 5% (ANTISEPSIS KIT) 4 APPLICATIONS EACH NARE PRN; -PROPOFOL 200 MG/20 ML AMP IV ONE; -SODIUM BICARBONATE 8.4% INJ 50 ML ONE; -SODIUM CHLORID 0.9% 500 ML IV PRN; -ceFAZolin 2 GM PREMIX 50 ML IV SCH; -fentaNYL CITRATE 250 MCG/5 ML AMP ONE; -oxyCODONE/ACETAMINOPHEN 5 MG/325 MG TAB PO PRN
[2017-04-28 23:47] VITALS: BP 146/83; PULSE 106; RESP 16; TEMP 98.8; O2SAT 98
[2017-04-29 00:20] VITALS: BP 125/81; PULSE 103; RESP 18; O2SAT 98
[2017-04-29] MEDS ORDERED: SODIUM CHLORIDE 0.9% FLUSH 10 ML FLUSH IV FLUSH PRN (00:30)
[2017-04-29] MEDS ORDERED: MORPHINE SULFATE 4 MG/ML INJ IV PUSH ONE (00:30)
[2017-04-29] MEDS ORDERED: SODIUM CHLOR 0.9% 1000 ML INJ 1,000 ML IV ONE (00:30)
[2017-04-29] MEDS ORDERED: VANCOMYCIN INJ 1,000 MG in SODIUM CHLOR 0.9% 250 ML INJ 250 ML IV ONE (00:30)
[2017-04-29 00:43] LABS: AUTOMATED NEUTROPHIL # 12.9 TH/MM3 (1.8-7.7); BASOPHIL # 0.2 TH/MM3 (0-0.2); EOSINOPHIL # 0.2 TH/MM3 (0-0.4); EOSINOPHIL % 1.4 % (0.0-4.0); HEMATOCRIT 35.6 % (35.0-46.0); HEMO FLAGS DIFF FINAL; LYMPH % 15.5 % (9.0-44.0); LYMPHOCYTE # 2.6 TH/MM3 (1.0-4.8); MEAN CELL VOLUME 88.3 FL (80.0-100.0); MEAN CORPUSCULAR HEMOGLOBIN 30.3 PG (27.0-34.0); MEAN CORPUSCULAR HGB CONC 34.3 % (32.0-36.0); MONO % 5.4 % (0.0-8.0); NEUT % 76.7 % (16.0-70.0); PLATELET COUNT 647 TH/MM3 (150-450); RED BLOOD COUNT 4.03 MIL/MM3 (4.00-5.30); RED CELL DISTRIBUTION WIDTH 13.4 % (11.6-17.2); WHITE BLOOD COUNT 16.8 TH/MM3 (4.0-11.0)
[2017-04-29 01:04] LABS: BICARBONATE 23.9 MEQ/L (21.0-32.0); POTASSIUM 3.6 MEQ/L (3.5-5.1)
--- NOTE | 2017-04-29 01:06 | PD ---
HPI Chief Complaint: Skin Problem Time Seen by Provider: 00:05 Travel History International Travel<30 days: No Contact w/Intl Traveler<30days: No Traveled to known affect area: No History of Present Illness HPI 36-year-old female with history of melanoma on her left arm status post resection with left axillary lymph node resection by a surgeon Dr. Mckeon on , recent admission for left axillary incision infection on 04/17/17 with discharge on 04/19/17 on Bactrim, here today for evaluation of increasing pain and swelling to the left breast. Patient reports that symptoms started yesterday and worsened throughout the day today. She denies trauma. She reports compliance with her Bactrim. She denies fevers or chills. She reports that she ran out of hydrocodone at home. PFSH Past Medical History Asthma: No Blood Disorders: No Anxiety: No Depression: No Heart Rhythm Problems: No Cancer: Yes (melinoma skin CA) Cardiovascular Problems: No High Cholesterol: No Chemotherapy: No Chest Pain: No Congestive Heart Failure: No COPD: No Diabetes: No Diminished Hearing: No Endocrine: No Genitourinary: No Hepatitis: No Hiatal Hernia: No Immune Disorder: No Musculoskeletal: No Neurologic: No Psychiatric: No Reproductive: No Respiratory: No Radiation Therapy: No Sleep Apnea: No Thyroid Disease: No Tetanus Vaccination: Unknown Influenza Vaccination: No ?: Not LMP: 03/27/2017 : 6 Para: 4 Miscarriage: 1 : 1 Tubal Ligation: Yes Past Surgical History Abdominal Surgery: No AICD: No Body Medical Devices: NONE Cardiac Surgery: No Section: Yes (X4) Ear Surgery: No Endocrine Surgery: No Eye Surgery: No Genitourinary Surgery: No Gynecologic Surgery: Yes ( X4, TUBAL) Joint Replacement: No Oral Surgery: No Pacemaker: No Thoracic Surgery: No Tonsillectomy: Yes Other Surgery: Yes (MELENOMA REMOVED 04/08/17) Social History Alcohol Use: No Tobacco Use: Yes Substance Use: No Allergies-Medications (Allergen,Severity, Reaction): Coded Allergies: No Known Allergies (Verified , 04/28/17) Reported Meds & Prescriptions Reported Meds & Active Scripts Active Reported Lortab (Hydrocodone-Acetaminophen) 5-325 Mg Tab 1 Tab PO Q4H PRN Ketorolac (Ketorolac Tromethamine) 10 Mg Tab 10 Mg PO Q6HR PRN Review of Systems Except as stated in HPI: all other systems reviewed are Neg Physical Exam Narrative GENERAL: Well-developed, well-nourished, awake, alert, sitting comfortably on stretcher, no acute distress. SKIN: Left lateral arm with long/vertical surgical incision with yesica intact without warmth or erythema, well-healing. Left axilla with horizontal incision that is well-healed with mild surrounding warmth, no induration, no fluctuance. BREAST: Exam performed in the presence of a female nurse. Left lateral breast with mild erythema and warmth as well as induration. No fluctuance. No crepitus. This area was evaluated using a bedside linear ultrasound probe and shows cobblestoning which is consistent with cellulitis, no drainable fluid collection. EYES: Pupils equal and round. No scleral icterus. No injection or drainage. ENT: Mucous membranes pink and moist. CARDIOVASCULAR: Regular rate and rhythm. RESPIRATORY: No accessory muscle use. Clear to auscultation. Breath sounds equal bilaterally. GASTROINTESTINAL: Abdomen soft, non-tender, nondistended. MUSCULOSKELETAL: No obvious deformities. No clubbing. No cyanosis. No edema. NEUROLOGICAL: Awake and alert. No obvious cranial nerve deficits. Motor grossly within normal limits. Normal speech. PSYCHIATRIC: Appropriate mood and affect; insight and judgment normal. Data Data Last Documented VS Vital Signs Date Time Temp Pulse Resp B/P Pulse Ox O2 Delivery O2 Flow Rate FiO2 04/29/17 01:10 86 04/29/17 00:20 18 125/81 98 Room Air 04/28/17 23:47 98.8 Orders Basic Metabolic Panel (Bmp) (04/29/17 00:18) Complete Blood Count With Diff (04/29/17 00:18) Iv Access Insert/Monitor (04/29/17 00:18) Ecg Monitoring (04/29/17 00:18) Oximetry (04/29/17 00:18) Sodium Chloride 0.9% Flush (Ns Flush) (04/29/17 00:30) Sodium Chlor 0.9% 1000 Ml Inj (Ns 1000 M (04/29/17 00:30) Morphine Inj (Morphine Inj) (04/29/17 00:30) Vancomycin Inj (Vancomycin Inj) (04/29/17 00:30) Labs Laboratory Tests Test 04/29/17 00:30 White Blood Count 16.8 TH/MM3 Red Blood Count 4.03 MIL/MM3 Hemoglobin 12.2 GM/DL Hematocrit 35.6 % Mean Corpuscular Volume 88.3 FL Mean Corpuscular Hemoglobin 30.3 PG Mean Corpuscular Hemoglobin 34.3 % Concent Red Cell Distribution Width 13.4 % Platelet Count 647 TH/MM3 Mean Platelet Volume 7.4 FL Neutrophils (%) (Auto) 76.7 % Lymphocytes (%) (Auto) 15.5 % Monocytes (%) (Auto) 5.4 % Eosinophils (%) (Auto) 1.4 % Basophils (%) (Auto) 1.0 % Neutrophils # (Auto) 12.9 TH/MM3 Lymphocytes # (Auto) 2.6 TH/MM3 Monocytes # (Auto) 0.9 TH/MM3 Eosinophils # (Auto) 0.2 TH/MM3 Basophils # (Auto) 0.2 TH/MM3 CBC Comment DIFF FINAL Differential Comment Sodium Level 137 MEQ/L Potassium Level 3.6 MEQ/L Chloride Level 103 MEQ/L Carbon Dioxide Level 23.9 MEQ/L Anion Gap 10 MEQ/L Blood Urea Nitrogen 4 MG/DL Creatinine 0.60 MG/DL Estimat Glomerular Filtration 112 ML/MIN Rate Random Glucose 81 MG/DL Calcium Level 9.2 MG/DL MDM Medical Decision Making Medical Screen Exam Complete: Yes Emergency Medical Condition: Yes Medical Record Reviewed: Yes Differential Diagnosis Cellulitis, breast abscess, sepsis Narrative Course Initial vital signs showed a heart rate of 106 which improved to 86 without any intervention, blood pressure 146/83, pulse ox 98% on room air, oral temp of 98.8 F. CBC shows WBC 16.8, hemoglobin 12.2, hematocrit 35.6, platelets 647, neutrophils 76.7%. BMP is unremarkable. SKIN: Left lateral arm with long/vertical surgical incision with yesica intact without warmth or erythema, well-healing. Left axilla with horizontal incision that is well-healed with mild surrounding warmth, no induration, no fluctuance. BREAST: Exam performed in the presence of a female nurse. Left lateral breast with mild erythema and warmth as well as induration. No fluctuance. No crepitus. This area was evaluated using a bedside linear ultrasound probe and shows cobblestoning which is consistent with cellulitis, no drainable fluid collection. Patient was given a dose of IV vancomycin as well as IV morphine and is resting comfortably. She does have left breast cellulitis, however there is no sign of abscess. Her surgical incisions actually appear to be well-healing. There are no drainable fluid collections. Wound cultures last time the patient was here grew out staph aureus that was pansensitive. She has been on Bactrim. Plan is to start her on doxycycline. She will follow-up with her surgeon Dr. Mckeon tomorrow. She is stable for discharge home with outpatient follow-up. She was informed on when to return to the emergency department. She verbalizes understanding and agreement with plan. Diagnosis Primary Impression: Cellulitis of left breast Referrals: Julius Mckeon MD 1 day Additional Instructions: Follow-up with your surgeon Dr. Mckeon tomorrow. Stay out of sunlight while taking doxycycline. Return to the emergency department for worsening symptoms or any other concerns. Scripts Oxycodone-Acetaminophen (Percocet)5-325 mg Tab1 Tab PO Q6H PRN (PAIN) #15 TAB Ref 0 Prov:William Nieto MD 04/29/17 Doxycycline Hyclate 100 Mg [id number] Mg PO BID #20 CAP Ref 0 Prov:William Nieto MD 04/29/17 Disposition: 01 DISCHARGE HOME Condition: Stable William Nieto MD Apr 29, 2017 01:06
[2017-04-29 01:10] VITALS: PULSE 86
[2017-04-29] MEDS ORDERED: DOXY100C PO (01:29)
[2017-04-29] MEDS ORDERED: PERC5TAB12 PO (01:29)
[2017-04-29] MEDS ORDERED: KETOROLAC TROMETHAMINE 30 MG/ML (IVP) VIAL IV PUSH ONE (01:30)
[2017-04-29 02:26] VITALS: BP 110/74; PULSE 85; RESP 18; O2SAT 96
[2017-04-29] MEDS ORDERED: BACT800T5 PO (02:56)
[2017-05-06] MEDS ORDERED: LEVO750T3 PO (10:26)
== END 2017-04-29 02:57 | disposition home or self-care (01) ==
LOC: NEPC 23:43
DX: N61.0 Mastitis without abscess (principal); Z79.899 Other long term (current) drug therapy; Z72.0 Tobacco use
CPT/HCPCS: 80048; 85025; 96374; 96375; 99285; J1885; J2270; J3370; J7030; J7050

== ENCOUNTER 2017-05-06 17:50 | Emergency (ER) | payer MEDICARE, OTHER ==
[~2017-05-06] VITALS: Ht 157.5 cm; Wt 70.0 kg
[~2017-05-06 17:50] MED LIST changes: +BACT800T5 PO; +DOXY100C PO; +LEVO750T3 PO; +PERC5TAB12 PO
[2017-05-06 17:55] VITALS: BP 141/82; PULSE 90; RESP 15; TEMP 98.4; O2SAT 98
== END 2017-05-06 23:56 | disposition left against medical advice (07) ==
LOC: NED 17:50
DX: Z53.21 Procedure and treatment not carried out due to patient leaving prior to being seen by health care provider (principal)
CPT/HCPCS: 99281

== ENCOUNTER 2017-05-12 20:31 | Emergency (ER) | payer MEDICARE, OTHER ==
[2017-05-12 20:35] VITALS: BP 156/86; PULSE 87; RESP 16; TEMP 98.3; O2SAT 98
--- NOTE | 2017-05-12 21:19 | PD ---
HPI Chief Complaint: Skin Problem Time Seen by Provider: 21:02 Travel History International Travel<30 days: No Contact w/Intl Traveler<30days: No Traveled to known affect area: No History of Present Illness HPI PATIENT HAD RESECTION OF LYMPH NODES DUE TO MELANOMA/CANCER. PATIENT IS C/O PAIN IN BREAST AREA, WHICH HAS DEVELOPED AN INFECTION (CELLLULITIS) THAT HAS REQUIRED MULTIPLE CHANGES OF ABX BY HER SURGEON, PRIMARY AND INFECTIOUS DISEASE BASED ON EVALUATION OF MEDICAL RECORDS (PATIENT POOR HISTORIAN). HAS BEEN RECENTLY CHANGED ON ABX, HERE FOR PAIN CONTROL. LEFT BREAST PAIN, 05/12, NOT RELIEVED WITH HER OWN PAIN MEDS AND ABX AT THIS POINT. PATIENT HAS EXCELLENT FOLLOW UP CARE, NO FURTHER CHANGES WILL BE MADE AT THIS TIME. PFSH Past Medical History Asthma: No Blood Disorders: No Anxiety: No Depression: No Heart Rhythm Problems: No Cancer: Yes (melinoma skin CA) Cardiovascular Problems: No High Cholesterol: No Chemotherapy: No Chest Pain: No Congestive Heart Failure: No COPD: No Diabetes: No Diminished Hearing: No Endocrine: No Genitourinary: No Hepatitis: No Hiatal Hernia: No Immune Disorder: No Musculoskeletal: No Neurologic: No Psychiatric: No Reproductive: No Respiratory: No Radiation Therapy: No Sleep Apnea: No Thyroid Disease: No Tetanus Vaccination: > 5 Years ?: Not : 6 Para: 4 Miscarriage: 1 : 1 Tubal Ligation: Yes Past Surgical History Abdominal Surgery: No AICD: No Body Medical Devices: NONE Cardiac Surgery: No Section: Yes (X4) Ear Surgery: No Endocrine Surgery: No Eye Surgery: No Genitourinary Surgery: No Gynecologic Surgery: Yes ( X4, TUBAL) Joint Replacement: No Oral Surgery: No Pacemaker: No Thoracic Surgery: No Tonsillectomy: Yes Other Surgery: Yes (MELENOMA REMOVED 04/08/17) Social History Alcohol Use: No Tobacco Use: Yes (1.5 ppd) Substance Use: No Allergies-Medications (Allergen,Severity, Reaction): Coded Allergies: No Known Allergies (Verified , 05/12/17) Reported Meds & Prescriptions Reported Meds & Active Scripts Active Percocet (Oxycodone-Acetaminophen) 5-325 mg Tab 1 Tab PO Q6H PRN Reported Levofloxacin 750 Mg Tablet 750 Mg PO DAILY 14 Days Physical Exam Narrative GENERAL: SKIN: Warm and dry. LEFT BREAST HAS MILD FADING CELLULITIC CHANGES ON LEFT LATERAL LOWER QUADRANTS WITH MINIMAL INDURATION, NO STREAKING HEAD: Atraumatic. Normocephalic. EYES: Pupils equal and round. No scleral icterus. No injection or drainage. ENT: No nasal bleeding or discharge. Mucous membranes pink and moist. NECK: Trachea midline. No JVD. CARDIOVASCULAR: Regular rate and rhythm. RESPIRATORY: No accessory muscle use. Clear to auscultation. Breath sounds equal bilaterally. GASTROINTESTINAL: Abdomen soft, non-tender, nondistended. Hepatic and splenic margins not palpable. MUSCULOSKELETAL: Extremities without clubbing, cyanosis, or edema. No obvious deformities. NEUROLOGICAL: Awake and alert. No obvious cranial nerve deficits. Motor grossly within normal limits. Five out of 5 muscle strength in the arms and legs. Normal speech. PSYCHIATRIC: Appropriate mood and affect; insight and judgment normal. Data Data Last Documented VS Vital Signs Date Time Temp Pulse Resp B/P Pulse Ox O2 Delivery O2 Flow Rate FiO2 05/12/17 20:35 98.3 87 16 156/86 98 Room Air Orders Ketorolac Inj (Toradol Inj) (05/12/17 21:30) [facility] Medical Decision Making Medical Screen Exam Complete: Yes Emergency Medical Condition: Yes Medical Record Reviewed: Yes Differential Diagnosis N/A Narrative Course PATIENT ALREADY RECEIVING TREATMENT WITH ID INVOLVEMENT, NO ADDITIONAL CHANGES TO ABX WILL BE MADE HOWEVER WILL ADDRESS BREAKTHROUGH PAIN Diagnosis Primary Impression: BREAKTHROUGH PAIN Additional Impression: RESOLVING CELLULITIS OF LEFT BREAST Patient Instructions: Cellulitis (ED), General Instructions Disposition: 01 DISCHARGE HOME Condition: Stable Lior Lay MD May 12, 2017 21:19
[2017-05-12] MEDS ORDERED: KETOROLAC TROMETHAMINE 60 MG/2 ML (IM) VIAL IM ONE (21:30)
== END 2017-05-12 21:36 | disposition home or self-care (01) ==
LOC: NEPD 20:31
DX: N64.4 Mastodynia (principal); F17.200 Nicotine dependence, unspecified, uncomplicated
CPT/HCPCS: 96372; 99284; J1885

== ENCOUNTER 2017-05-17 19:24 | Emergency (ER) | payer MEDICARE, OTHER ==
[~2017-05-17] VITALS: Ht 167.6 cm; Wt 77.0 kg
[~2017-05-17 19:24] MED LIST changes: -BACT800T5 PO; -DOXY100C PO; -HYDR-3533 PO; -KETO10 PO
[2017-05-17 19:26] VITALS: BP 125/84; PULSE 81; RESP 16; TEMP 98.1; O2SAT 99
--- NOTE | 2017-05-17 20:01 | PD ---
Physical Exam Date Seen by Provider: May 17, 2017 Time Seen by Provider: 19:59 Narrative 36 YOWF C/O R KNEE PAIN FOR 4 DAYS. NO INJURY. NO F/C/N/V. PAIN 07/12 VS REVIEWED AWAITING BED PLACEMENT Data Data Last Documented VS Vital Signs Date Time Temp Pulse Resp B/P Pulse Ox O2 Delivery O2 Flow Rate FiO2 05/17/17 19:26 98.1 81 16 125/84 99 MDM Supervised Visit with DILEEP: Fabricio Nicholas May 17, 2017 20:01
[2017-05-17] MEDS ORDERED: NAPR500T PO (23:41)
== END 2017-05-17 20:25 | disposition left against medical advice (07) ==
LOC: NEPK 19:24
DX: M25.561 Pain in right knee (principal)
CPT/HCPCS: 99281

== ENCOUNTER 2017-05-17 22:00 | Emergency (ER) | payer MEDICARE, OTHER ==
[2017-05-17 22:04] VITALS: BP 129/76; PULSE 94; RESP 16; TEMP 98.7; O2SAT 98
[2017-05-17] MEDS ORDERED: NAPR500T PO (23:41)
--- NOTE | 2017-05-17 23:51 | PD ---
HPI Chief Complaint: Injury Time Seen by Provider: 23:30 Travel History International Travel<30 days: No Contact w/Intl Traveler<30days: No Traveled to known affect area: No History of Present Illness HPI 36-year-old female presents for evaluation of right knee pain. Symptoms started 4 days ago. 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 She returned to work 4 days ago in her right knee began hurting during her shift. She believes that she may have strained it from the increased physical activity. She denies any specific trauma. The pain is worse with movement, walking. She denies any other injuries and she has no other complaints at this time. PFSH Past Medical History Asthma: No Blood Disorders: No Anxiety: No Depression: No Heart Rhythm Problems: No Cancer: Yes (melinoma skin CA) Cardiovascular Problems: No High Cholesterol: No Chemotherapy: No Chest Pain: No Congestive Heart Failure: No COPD: No Diabetes: No Diminished Hearing: No Endocrine: No Genitourinary: No Hepatitis: No Hiatal Hernia: No Immune Disorder: No Musculoskeletal: No Neurologic: No Psychiatric: No Reproductive: No Respiratory: No Radiation Therapy: No Sleep Apnea: No Thyroid Disease: No : 6 Para: 4 Miscarriage: 1 : 1 Tubal Ligation: Yes Past Surgical History Abdominal Surgery: No AICD: No Body Medical Devices: NONE Cardiac Surgery: No Section: Yes (X4) Ear Surgery: No Endocrine Surgery: No Eye Surgery: No Genitourinary Surgery: No Gynecologic Surgery: Yes ( X4, TUBAL) Joint Replacement: No Oral Surgery: No Pacemaker: No Thoracic Surgery: No Tonsillectomy: Yes Other Surgery: Yes (MELENOMA REMOVED 04/08/17) Social History Alcohol Use: No Tobacco Use: Yes (1.5 ppd) Substance Use: No Allergies-Medications (Allergen,Severity, Reaction): Coded Allergies: No Known Allergies (Verified , 05/12/17) Reported Meds & Prescriptions Reported Meds & Active Scripts Active Naproxen 500 Mg Tab 500 Mg PO BID 10 Days Percocet (Oxycodone-Acetaminophen) 5-325 mg Tab 1 Tab PO Q6H PRN Reported Levofloxacin 750 Mg Tablet 750 Mg PO DAILY 14 Days Review of Systems Musculoskeletal: Positive: Pain, No: Limited ROM Skin: Positive Other (denies open wounds) Physical Exam Narrative GENERAL: Well-developed well-nourished female in no acute distress ambulatory. SKIN: Warm and dry. No bruising or soft tissue swelling HEAD: Atraumatic. Normocephalic. EYES: Pupils equal and round. No scleral icterus. No injection or drainage. ENT: No nasal bleeding or discharge. Mucous membranes pink and moist. NECK: Trachea midline. No JVD. CARDIOVASCULAR: Regular rate and rhythm. No murmur appreciated. RESPIRATORY: No accessory muscle use. Clear to auscultation. Breath sounds equal bilaterally. GASTROINTESTINAL: Abdomen soft, non-tender, nondistended. MUSCULOSKELETAL: No obvious deformities. No joint effusion. No bony tenderness to palpation. The patient maintains full flexion and extension of the right knee with no apparent discomfort. There is no calf or thigh tenderness. Distal pulses are intact. NEUROLOGICAL: Awake and alert. No obvious cranial nerve deficits. Motor grossly within normal limits. Normal speech. 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 Examination reveals no obvious deformity. Likely the patient has a mild strain to her right knee. She'll be discharged with a short course of naproxen. Diagnosis Primary Impression: Strain of right knee Qualified Code: S86.911A - Strain of right knee, initial encounter Additional Instructions: Medication as needed. Take with meals. Avoid strenuous activity. Follow-up with primary care physician as needed. Return for any emergent medical conditions. Med/Other Pt SpecificInfo: Prescription(s) given Scripts Naproxen 500 Mg Enp597 Mg PO BID 10 Days Ref 0 Prov:iLor Lay MD 05/17/17 Disposition: 01 DISCHARGE HOME Condition: Stable Jared Huertas May 17, 2017 23:51
== END 2017-05-18 00:07 | disposition home or self-care (01) ==
LOC: NEPK 22:00
DX: S86.911A Strain of unspecified muscle(s) and tendon(s) at lower leg level, right leg, initial encounter (principal); X50.0XXA Overexertion from strenuous movement or load, initial encounter; Y93.E9 Activity, other interior property and clothing maintenance; Y99.0 Civilian activity done for income or pay
CPT/HCPCS: 99283

== ENCOUNTER 2017-05-21 15:23 | Emergency (ER) | payer MEDICARE, OTHER ==
[~2017-05-21] VITALS: Ht 157.5 cm; Wt 70.0 kg
[~2017-05-21 15:23] MED LIST changes: +NAPR500T PO; -PERC5TAB12 PO
[2017-05-21 15:25] VITALS: BP 146/69; PULSE 104; RESP 16; TEMP 98.5; O2SAT 98
[2017-05-22] MEDS ORDERED: CEPH-460 PO (02:01)
[2017-05-22] MEDS ORDERED: BACT800T5 PO (02:01)
== END 2017-05-21 18:45 | disposition left against medical advice (07) ==
LOC: NETRI 15:23
DX: M79.642 Pain in left hand (principal); Z53.21 Procedure and treatment not carried out due to patient leaving prior to being seen by health care provider
CPT/HCPCS: 99281

== ENCOUNTER 2017-05-21 21:57 | Emergency (ER) | payer MEDICARE, OTHER ==
[2017-05-21 21:59] VITALS: BP 124/75; PULSE 94; RESP 16; TEMP 98; O2SAT 99
[2017-05-21 22:59] VITALS: BP 121/83; PULSE 92; RESP 18; O2SAT 100
--- NOTE | 2017-05-21 23:37 | PD ---
HPI Chief Complaint: Injury Time Seen by Provider: 23:18 Travel History International Travel<30 days: No Contact w/Intl Traveler<30days: No Traveled to known affect area: No History of Present Illness HPI Patient is a 36 year old female who returns to the ER with c/o of left breast redness with left arm swelling. Reports that on April 08, she has a malignant melanoma removed to her left arm with wide excision as well as with lymph node removal by Dr. Mckeon. Reports that since then, she has had increased redness to her left breast and swelling to her left arm. She was seen on April 16, and was admitted for postoperative cellulitis of surgical wound. Reports that she has been on multiple rounds of antibiotics but her left breast still appears cellulitis. Reports that her left arm still feels swollen. Patient reports that she recently completely course of antibiotics and was compliant with her medications. Patient here for re-evaluation of her symptoms. Denies fever/ chills. Denies n/v. No other c/o. PFSH Past Medical History Asthma: No Blood Disorders: No Anxiety: No Depression: No Heart Rhythm Problems: No Cancer: Yes (melinoma skin CA) Cardiovascular Problems: No High Cholesterol: No Chemotherapy: No Chest Pain: No Congestive Heart Failure: No COPD: No Diabetes: No Diminished Hearing: No Endocrine: No Gastrointestinal Disorders: No Genitourinary: No Hepatitis: No Hiatal Hernia: No Hypertension: No Immune Disorder: No Implanted Vascular Access Dvce: No Musculoskeletal: No Neurologic: No Psychiatric: No Reproductive: No Respiratory: No Radiation Therapy: No Sleep Apnea: No Thyroid Disease: No Tetanus Vaccination: Unknown Influenza Vaccination: No ?: Not LMP: 05/01/2017 : 6 Para: 4 Miscarriage: 1 : 1 Tubal Ligation: Yes Past Surgical History Abdominal Surgery: No AICD: No Body Medical Devices: NONE Cardiac Surgery: No Section: Yes (X4) Ear Surgery: No Endocrine Surgery: No Eye Surgery: No Genitourinary Surgery: No Gynecologic Surgery: Yes ( X4, TUBAL) Joint Replacement: No Neurologic Surgery: No Oral Surgery: No Pacemaker: No Thoracic Surgery: No Tonsillectomy: Yes Other Surgery: Yes (MELENOMA REMOVED 04/08/17) Social History Alcohol Use: No Tobacco Use: Yes (1.5 ppd) Substance Use: No Allergies-Medications (Allergen,Severity, Reaction): Coded Allergies: No Known Allergies (Verified , 05/12/17) Reported Meds & Prescriptions Reported Meds & Active Scripts Active Bactrim DS (Sulfamethoxazole-Trimethoprim) 800-160 Mg Tab 1 Tab PO BID 10 Days Keflex (Cephalexin) 500 Mg Cap 500 Mg PO Q6H 10 Days Review of Systems General / Constitutional: No: Fever Eyes: No: Visual changes HENT: No: Headaches Cardiovascular: No: Chest Pain or Discomfort Respiratory: No: Shortness of Breath Gastrointestinal: No: Abdominal Pain Genitourinary: No: Dysuria Musculoskeletal: No: Pain Skin: Positive Breast Tenderness, Positive Breast Swelling, No Rash Neurologic: No: Weakness Psychiatric: No: Depression Endocrine: No: Polydipsia Hematologic/Lymphatic: No: Easy Bruising Physical Exam Narrative GENERAL: Mild distress SKIN: Focused skin assessment warm/dry. Patient with redness surrounding her left breast with no obvious drainage or abscess HEAD: Atraumatic. Normocephalic. EYES: Pupils equal and round. No scleral icterus. No injection or drainage. ENT: No nasal bleeding or discharge. Mucous membranes pink and moist. NECK: Trachea midline. No JVD. CARDIOVASCULAR: Regular rate and rhythm. No murmur appreciated. RESPIRATORY: No accessory muscle use. Clear to auscultation. Breath sounds equal bilaterally. GASTROINTESTINAL: Abdomen soft, non-tender, nondistended. Hepatic and splenic margins not palpable. MUSCULOSKELETAL: No obvious deformities. No clubbing. No cyanosis. mild swelling to left upper extremity NEUROLOGICAL: Awake and alert. No obvious cranial nerve deficits. Motor grossly within normal limits. Normal speech. PSYCHIATRIC: Appropriate mood and affect; insight and judgment normal. Data Data Last Documented VS Vital Signs Date Time Temp Pulse Resp B/P Pulse Ox O2 Delivery O2 Flow Rate FiO2 05/22/17 02:00 76 18 114/78 99 Room Air 05/21/17 21:59 98.0 Orders Basic Metabolic Panel (Bmp) (05/21/17 23:29) Complete Blood Count With Diff (05/21/17 23:29) Iv Access Insert/Monitor (05/21/17 23:29) Ed Urine Pregnancytest Poc (05/21/17 23:29) Potassium Chloride (Kcl) (05/22/17 02:00) Cephalexin (Keflex) (05/22/17 02:15) Sulfamet-Trimeth Ds 800-160 Mg (Bactrim (05/22/17 02:15) Labs Laboratory Tests Test 05/21/17 23:35 White Blood Count 10.0 TH/MM3 Red Blood Count 3.62 MIL/MM3 Hemoglobin 11.0 GM/DL Hematocrit 31.8 % Mean Corpuscular Volume 88.0 FL Mean Corpuscular Hemoglobin 30.3 PG Mean Corpuscular Hemoglobin 34.4 % Concent Red Cell Distribution Width 14.8 % Platelet Count 478 TH/MM3 Mean Platelet Volume 7.7 FL Neutrophils (%) (Auto) 57.3 % Lymphocytes (%) (Auto) 30.5 % Monocytes (%) (Auto) 6.8 % Eosinophils (%) (Auto) 4.6 % Basophils (%) (Auto) 0.8 % Neutrophils # (Auto) 5.8 TH/MM3 Lymphocytes # (Auto) 3.1 TH/MM3 Monocytes # (Auto) 0.7 TH/MM3 Eosinophils # (Auto) 0.5 TH/MM3 Basophils # (Auto) 0.1 TH/MM3 CBC Comment DIFF FINAL Differential Comment Sodium Level 139 MEQ/L Potassium Level 3.4 MEQ/L Chloride Level 105 MEQ/L Carbon Dioxide Level 24.7 MEQ/L Anion Gap 9 MEQ/L Blood Urea Nitrogen 7 MG/DL Creatinine 0.91 MG/DL Estimat Glomerular Filtration 69 ML/MIN Rate Random Glucose 81 MG/DL Calcium Level 8.5 MG/DL MDM Medical Decision Making Medical Screen Exam Complete: Yes Emergency Medical Condition: Yes Interpretation(s) Vital Signs Date Time Temp Pulse Resp B/P Pulse Ox O2 Delivery O2 Flow Rate FiO2 05/21/17 22:59 100 05/21/17 22:59 92 18 121/83 100 Room Air 05/21/17 21:59 98.0 94 16 124/75 99 Room Air Differential Diagnosis Differential includes left breast cellulitis, postop wound infection Narrative Course 36-year-old female who presents to emergency room for evaluation of left breast cellulitis. She is status post resection of a malignant melanoma removed to her left arm with wide excision as well as with lymph node removal by Dr. Mckeon on April 08, 2017. patient has completed course of her antibiotics with minimal relief of symptoms. patient with no fever/chills. Plan to repeat blood work and will start on clindamycin. Patient understands importance of following up with Dr. Mckeon as outpatient Vital Signs Date Time Temp Pulse Resp B/P Pulse Ox O2 Delivery O2 Flow Rate FiO2 05/21/17 22:59 100 05/21/17 22:59 92 18 121/83 100 Room Air 05/21/17 21:59 98.0 94 16 124/75 99 Room Air CBC & BMP Diagram 05/21/17 23:35 Labs are reassuring, plan to have patient follow up with her surgeon as well as primary care doctor as outpatient. Will discharge on Keflex as well as Bactrim. Signs and symptoms of when to return to the ER was reviewed with patient in detail. Diagnosis Primary Impression: Cellulitis of left breast Additional Impression: Left arm swelling Patient Instructions: General Instructions Additional Instructions: Please follow up with your surgeon as well as your primary care doctor as soon as possible Please take all medications as prescribed Return to ER if symptoms worsen or progress Med/Other Pt SpecificInfo: Prescription(s) given Scripts Sulfamethoxazole-Trimethoprim (Bactrim DS)800-160 Mg Tab1 Tab PO BID 10 Days Ref 0 Prov:Bisi Celis DO 05/22/17 Cephalexin (Keflex)500 Mg [id number] Mg PO Q6H 10 Days Ref 0 Prov:Bisi Celis DO 05/22/17 Disposition: 01 DISCHARGE HOME Condition: Stable Bisi Celis DO May 21, 2017 23:37
[2017-05-22 00:39] LABS: AUTOMATED NEUTROPHIL # 5.8 TH/MM3 (1.8-7.7); BASOPHIL # 0.1 TH/MM3 (0-0.2); BASOPHIL % 0.8 % (0.0-2.0); EOSINOPHIL # 0.5 TH/MM3 (0-0.4); EOSINOPHIL % 4.6 % (0.0-4.0); HEMATOCRIT 31.8 % (35.0-46.0); HEMO FLAGS DIFF FINAL; LYMPH % 30.5 % (9.0-44.0); LYMPHOCYTE # 3.1 TH/MM3 (1.0-4.8); MEAN CORPUSCULAR HEMOGLOBIN 30.3 PG (27.0-34.0); MEAN CORPUSCULAR HGB CONC 34.4 % (32.0-36.0); MONO % 6.8 % (0.0-8.0); NEUT % 57.3 % (16.0-70.0); PLATELET COUNT 478 TH/MM3 (150-450); RED BLOOD COUNT 3.62 MIL/MM3 (4.00-5.30); RED CELL DISTRIBUTION WIDTH 14.8 % (11.6-17.2)
[2017-05-22 00:53] LABS: BICARBONATE 24.7 MEQ/L (21.0-32.0); POTASSIUM 3.4 MEQ/L (3.5-5.1)
[2017-05-22 00:56] VITALS: BP_SYST 112; BP_SYST 135; BP_DIAS 73; BP_DIAS 74; PULSE 78; PULSE 82; RESP 18; O2SAT 99
[2017-05-22 02:00] VITALS: BP 114/78; PULSE 76; RESP 18; O2SAT 99
[2017-05-22] MEDS ORDERED: POTASSIUM CHLORIDE 10 MEQ CONTROLLED RELEASE TAB PO ONE (02:00)
[2017-05-22] MEDS ORDERED: BACT800T5 PO (02:01)
[2017-05-22] MEDS ORDERED: CEPH-460 PO (02:01)
[2017-05-22] MEDS ORDERED: CEPHALEXIN MONOHYDRATE 500 MG CAP PO ONE (02:15)
[2017-05-22] MEDS ORDERED: SULFAMETHOXAZOLE-TRIMETHOPRIM DS 800-160 MG TAB PO ONE (02:15)
== END 2017-05-22 02:34 | disposition home or self-care (01) ==
LOC: NEPC 21:57
DX: N61.0 Mastitis without abscess (principal); R22.32 Localized swelling, mass and lump, left upper limb; F17.200 Nicotine dependence, unspecified, uncomplicated; Z98.890 Other specified postprocedural states; Z85.828 Personal history of other malignant neoplasm of skin
CPT/HCPCS: 80048; 84703; 85025; 99284

== ENCOUNTER 2017-06-06 22:29 | Emergency (ER) | payer MEDICARE, OTHER ==
[~2017-06-06] VITALS: Ht 157.5 cm; Wt 71.0 kg
[~2017-06-06 22:29] MED LIST changes: +BACT800T5 PO; +CEPH-460 PO; -LEVO750T3 PO; -NAPR500T PO
[2017-06-06 22:31] VITALS: BP 127/86; PULSE 89; RESP 16; TEMP 98.2; O2SAT 98
--- NOTE | 2017-06-06 23:40 | PD ---
HPI Chief Complaint: Pain: Acute or Chronic Time Seen by Provider: 22:51 Travel History International Travel<30 days: No Contact w/Intl Traveler<30days: No Traveled to known affect area: No History of Present Illness HPI Patient is a 36-year-old female presenting to the emergency department for evaluation of left hand and left breast swelling. The breast swelling has been ongoing since she had a melanoma removed in April. Patient states her left hand has been swollen for one week. Patient denies any pain, fevers, chills, shortness of breath, palpitations. Patient states that her symptoms have not change and she has no new symptoms today. Patient is followed by Dr. Chao, she sees him on Tuesday of this week. PFSH Past Medical History Asthma: No Blood Disorders: No Anxiety: No Depression: Yes Heart Rhythm Problems: No Cancer: Yes (melinoma skin CA) Cardiovascular Problems: No High Cholesterol: No Chemotherapy: No Chest Pain: No Congestive Heart Failure: No COPD: No Diabetes: No Diminished Hearing: No Endocrine: No Gastrointestinal Disorders: No Genitourinary: No Hepatitis: No Hiatal Hernia: No Hypertension: No Immune Disorder: No Implanted Vascular Access Dvce: No Musculoskeletal: No Neurologic: No Psychiatric: No Reproductive: No Respiratory: No Radiation Therapy: No Sleep Apnea: No Thyroid Disease: No Tetanus Vaccination: < 5 Years Influenza Vaccination: Yes ?: Not LMP: 06/06/17 : 6 Para: 4 Miscarriage: 1 : 1 Tubal Ligation: Yes Past Surgical History Abdominal Surgery: No AICD: No Body Medical Devices: NONE Cardiac Surgery: No Section: Yes (X4) Ear Surgery: No Endocrine Surgery: No Eye Surgery: No Genitourinary Surgery: No Gynecologic Surgery: Yes ( X4, TUBAL) Joint Replacement: No Neurologic Surgery: No Oral Surgery: No Pacemaker: No Thoracic Surgery: No Tonsillectomy: Yes Other Surgery: Yes (MELENOMA REMOVED 04/08/17) Social History Alcohol Use: No Tobacco Use: Yes (1.5 ppd) Substance Use: No Allergies-Medications (Allergen,Severity, Reaction): Coded Allergies: No Known Allergies (Verified , 05/12/17) Reported Meds & Prescriptions Reported Meds & Active Scripts Active Bactrim DS (Sulfamethoxazole-Trimethoprim) 800-160 Mg Tab 1 Tab PO BID 10 Days Keflex (Cephalexin) 500 Mg Cap 500 Mg PO Q6H 10 Days Review of Systems Except as stated in HPI: all other systems reviewed are Neg Musculoskeletal: Positive: Edema (left breast and left hand) Physical Exam Narrative GENERAL: Well-developed, well-nourished, alert female. Resting comfortably in no acute distress. SKIN: Warm and dry. Left breast is larger than the right, no tenderness to palpation, no obvious lumps or masses noted on exam. HEAD: Atraumatic. Normocephalic. EYES: Pupils equal and round. No scleral icterus. No injection or drainage. ENT: No nasal bleeding or discharge. Mucous membranes pink and moist. NECK: Trachea midline. No JVD. CARDIOVASCULAR: Regular rate and rhythm. RESPIRATORY: No accessory muscle use. Clear to auscultation. Breath sounds equal bilaterally. GASTROINTESTINAL: Abdomen soft, non-tender, nondistended. Hepatic and splenic margins not palpable. MUSCULOSKELETAL: Extremities without clubbing, cyanosis. No obvious deformities. Left hand is marginally larger than the right hand, 2+ positive radial pulse, brisk less than 3 second capillary refill. NEUROLOGICAL: Awake and alert. No obvious cranial nerve deficits. Motor grossly within normal limits. Five out of 5 muscle strength in the arms and legs. Normal speech. PSYCHIATRIC: Appropriate mood and affect; insight and judgment normal. Data Data Last Documented VS Vital Signs Date Time Temp Pulse Resp B/P (MAP) Pulse Ox O2 Delivery O2 Flow Rate FiO2 06/06/17 22:31 98.2 89 16 127/86 (100) 98 [facility] Medical Decision Making Medical Screen Exam Complete: Yes Emergency Medical Condition: Yes Medical Record Reviewed: Yes Interpretation(s) Vital Signs Date Time Temp Pulse Resp B/P (MAP) Pulse Ox O2 Delivery O2 Flow Rate FiO2 06/06/17 22:31 98.2 89 16 127/86 (100) 98 Differential Diagnosis Postop edema versus lymphedema versus less likely DVT versus cellulitis versus other Narrative Course Patient is a 36-year-old female presenting for evaluation of left breast and left hand edema. Patient has been seen and evaluated in emergency department several times with similar complaints. She has no new symptoms to report today. She does state that she has an appointment with Dr. Chao on June. She reported to me that after her last emergency department visit that she was prescribed antibiotics, she reports to me that she was told by Dr. Chao that she did not need to take them so she did not fill them. She has remained afebrile and feeling well. The swelling in her left hand is likely postoperative versus lymphedema. The swelling is marginal at best. Patient is neurovascularly intact. There does not appear to be any signs of cellulitis to the left breast and it is nontender to palpation. At this time patient will be discharged home, she is to follow-up with Dr. chao as scheduled. She is encouraged to return to emergency department for any new or worsening symptoms. Patient verbalized understanding of these instructions. Patient is stable for discharge. Pt was also seen and evaluated by Dr. Thibodeaux who is in agreement with plan and assessment. Diagnosis Primary Impression: Postoperative edema Referrals: Julius Chao MD 2 days Patient Instructions: General Instructions Additional Instructions: Follow-up with Dr. Chao on Tuesday as scheduled Return to emergency department for any new or worsening symptoms Med/Other Pt SpecificInfo: No Change to Meds Disposition: 01 DISCHARGE HOME Condition: Stable Alyssa Gonsales Jun 06, 2017 23:40
--- NOTE | 2017-06-07 00:36 | PD ---
Data Data Last Documented VS Vital Signs Date Time Temp Pulse Resp B/P (MAP) Pulse Ox O2 Delivery O2 Flow Rate FiO2 06/07/17 00:14 06/06/17 22:31 98.2 89 16 98 MDM Supervised Visit with DILEEP: Yes Narrative Course The history, exam, and medical decision-making in the associated midlevel provider note were completed with my assistance. I reviewed and agree with the findings presented. I attest that I had a [id number] encounter with the patient on the same day, and personally performed and documented my assessment and findings in the medical record. *My assessment and Findings: This is a 36-year-old female who presents to the emergency department with swelling in her left hand that's been present ever since Dr. chao did a melanoma resection and extracted some lymph nodes from the left side. Her hand slightly swollen and that she is normal neurovascular exam, no warmth or redness to suggest infection and her exam is globally fairly benign. She's been getting an extensive workup of this by Dr. chao. She has an appointment with him on Tuesday. Don't think there is anything additionally need to do in the emergency department. The patient has a very strange affect. She is a little bit argumentative upon initial questioning and says she feels like she is not getting an answer to what going on. I apologize for this but said I think she would be best served by following up with her outpatient surgeon. patient will be discharged home. Diagnosis Primary Impression: Postoperative edema Referrals: Julius Chao MD 2 days Patient Instructions: General Instructions Departure Forms: Tests/Procedures Additional Instruction: Follow-up with Dr. Chao on Tuesday as scheduled Return to emergency department for any new or worsening symptoms Disposition: 01 DISCHARGE HOME Condition: Stable aMy Thibodeaux MD Jun 07, 2017 00:36
== END 2017-06-07 00:14 | disposition home or self-care (01) ==
LOC: NEPD 22:29
DX: L76.82 Other postprocedural complications of skin and subcutaneous tissue (principal); R60.9 Edema, unspecified
CPT/HCPCS: 99281

== ENCOUNTER 2017-06-18 22:05 | Emergency (ER) | payer MEDICARE, OTHER ==
[~2017-06-18] VITALS: Ht 157.5 cm; Wt 68.0 kg
[2017-06-18 22:08] VITALS: BP 141/82; PULSE 99; RESP 16; TEMP 97.5; O2SAT 99
--- NOTE | 2017-06-18 22:20 | PD ---
HPI Chief Complaint: Lump, Cyst, Hernia Time Seen by Provider: 22:20 Travel History International Travel<30 days: No Contact w/Intl Traveler<30days: No Traveled to known affect area: No History of Present Illness HPI 36 YO F with PMH of melanoma presents to the ED for evaluation of 2 day history of redness and pain of surgical site of the left axilla. The patient denies fever, chills, nausea, vomiting, limitations to range of motion.. She states that she recently underwent resection of a melanoma of the left shoulder with left axillary lymph node dissection with Dr. Mckeon. She has follow-up with a oncologist but she is unsure of the physician's name. She has lab work and CT scan scheduled on the with all up appointment with the oncologist following shortly. PFSH Past Medical History Asthma: No Blood Disorders: No Anxiety: No Depression: Yes Heart Rhythm Problems: No Cancer: Yes (melinoma skin CA) Cardiovascular Problems: No High Cholesterol: No Chemotherapy: No Chest Pain: No Congestive Heart Failure: No COPD: No Diabetes: No Diminished Hearing: No Endocrine: No Gastrointestinal Disorders: No Genitourinary: No Hepatitis: No Hiatal Hernia: No Hypertension: No Immune Disorder: No Implanted Vascular Access Dvce: No Musculoskeletal: No Neurologic: No Psychiatric: No Reproductive: No Respiratory: No Radiation Therapy: No Sleep Apnea: No Thyroid Disease: No : 6 Para: 4 Miscarriage: 1 : 1 Tubal Ligation: Yes Past Surgical History Abdominal Surgery: No AICD: No Body Medical Devices: NONE Cardiac Surgery: No Section: Yes (X4) Ear Surgery: No Endocrine Surgery: No Eye Surgery: No Genitourinary Surgery: No Gynecologic Surgery: Yes ( X4, TUBAL) Joint Replacement: No Neurologic Surgery: No Oral Surgery: No Pacemaker: No Thoracic Surgery: No Tonsillectomy: Yes Other Surgery: Yes (MELENOMA REMOVED 04/08/17) Social History Alcohol Use: No Tobacco Use: Yes (1.5 ppd) Substance Use: No Allergies-Medications (Allergen,Severity, Reaction): Coded Allergies: No Known Allergies (Verified , 06/18/17) Reported Meds & Prescriptions Reported Meds & Active Scripts Active Bactroban Topical (Mupirocin) 22 Gm Cream 1 Applic TOPICAL BID 7 Days Review of Systems Except as stated in HPI: all other systems reviewed are Neg Physical Exam Narrative GENERAL: Well-nourished, well-developed anxious white female in no acute distress.. SKIN: Focused skin assessment warm/dry. There is a well healed surgical incision of the left axilla with a subcentimeter area of redness and tenderness. Consistent with suture abscess/ granuloma. HEAD: Normocephalic. EYES: No scleral icterus. No injection or drainage. NECK: Supple, trachea midline. No JVD or lymphadenopathy. CARDIOVASCULAR: Regular rate and rhythm without murmurs, gallops, or rubs. RESPIRATORY: Breath sounds clear and equal bilaterally. No accessory muscle use. GASTROINTESTINAL: Abdomen soft, non-tender, nondistended. MUSCULOSKELETAL: No cyanosis, or edema. BACK: Nontender without obvious deformity. No CVA tenderness. Data Data Last Documented VS Vital Signs Date Time Temp Pulse Resp B/P (MAP) Pulse Ox O2 Delivery O2 Flow Rate FiO2 06/18/17 22:31 86 18 144/81 (102) 98 Room Air 06/18/17 22:08 97.5 MDM Medical Decision Making Medical Screen Exam Complete: Yes Emergency Medical Condition: Yes Differential Diagnosis folliculitis versus suture abscess versus melanoma versus other Narrative Course 6 YO F with PMH of melanoma presents to the ED for evaluation of 2 day history of redness and pain of surgical site of the left axilla. The patient denies fever, chills, nausea, vomiting, limitations to range of motion. She states that she recently underwent resection of a melanoma of the left shoulder with left axillary lymph node dissection with Dr. Mkceon. Vitals reviewed. Physical exam consistent with suture granuloma her suture reaction. Certainly no systemic signs of infection at this time. I prescribed Bactroban ointment and warm compresses a couple times a day, monitor for signs of infection, follow up with the oncologist early next week as planned. The patient's agreeable with this discharge plan she is stable and discharged home. Diagnosis Primary Impression: Suture granuloma Qualified Codes: T81.89XA - Other complications of procedures, not elsewhere classified, initial encounter Additional Impression: Suture reaction Qualified Codes: T81.89XA - Other complications of procedures, not elsewhere classified, initial encounter Referrals: Julius Mckeon MD Oncologist Patient Instructions: Folliculitis (ED), General Instructions Additional Instructions: Rest, hydrate. Return to normal, gentle activities as tolerated. Apply Bactroban ointment as prescribed. Warm compresses a few times per day may also help to resolve symptoms. DO NOT SQUEEZE THE AREA as this can worsen symptoms. Follow up with Dr. Mckeon and your oncologist as planned. Return to the ED for worsening symptoms or any urgent or emergent medical condition. Med/Other Pt SpecificInfo: Prescription(s) given Scripts Mupirocin Topical (Bactroban Topical) 22 Gm Cream 1 APPLIC TOPICAL BID for Mgmt Bacterial Infection for 7 Days, #1 TUBE 0 Refills Prov: Brian Velasquez MD 06/18/17 Disposition: 01 DISCHARGE HOME Condition: Stable Briseida Taylor Jun 18, 2017 22:20
[2017-06-18 22:31] VITALS: BP 144/81; PULSE 86; RESP 18; O2SAT 98
[2017-06-18] MEDS ORDERED: MUPI2%T TOPICAL (22:39)
--- NOTE | 2017-06-18 22:58 | PD ---
Data Data Last Documented VS Vital Signs Date Time Temp Pulse Resp B/P (MAP) Pulse Ox O2 Delivery O2 Flow Rate FiO2 06/18/17 22:40 06/18/17 22:31 86 18 98 Room Air 06/18/17 22:08 97.5 MDM Supervised Visit with DILEEP: Yes Narrative Course The history, exam, and medical decision-making in the associated mid-level provider note were completed with my assistance. I reviewed and agree with the findings presented. I attest that I had a [id number] encounter with the patient on the same day, and personally performed and documented my assessment and findings in the medical record. *My assessment and Findings: So 36 year-old woman who presents to the emergency department complaining of tenderness in her incision in her axilla. She had a previous wound infection following lymph node resection for melanoma. She had some positive nodes and is due to follow-up for chemotherapy. On exam she has a small stitch abscess to just wanted to the wound. 3 minor. Recommend warm compresses. No antibiotics. Diagnosis Primary Impression: Suture granuloma Additional Impression: Suture reaction Referrals: Julius Mckeon MD Oncologist Patient Instructions: General Instructions, Folliculitis (ED) Departure Forms: Tests/Procedures Additional Instruction: Rest, hydrate. Return to normal, gentle activities as tolerated. Apply Bactroban ointment as prescribed. Warm compresses a few times per day may also help to resolve symptoms. DO NOT SQUEEZE THE AREA as this can worsen symptoms. Follow up with Dr. Mckeon and your oncologist as planned. Return to the ED for worsening symptoms or any urgent or emergent medical condition. Scripts Mupirocin Topical (Bactroban Topical) 22 Gm Cream 1 APPLIC TOPICAL BID for Mgmt Bacterial Infection for 7 Days, #1 TUBE 0 Refills Prov: Brian Velasquez MD 06/18/17 Disposition: 01 DISCHARGE HOME Condition: Stable Brian Velasquez MD Jun 18, 2017 22:58
== END 2017-06-18 22:52 | disposition home or self-care (01) ==
LOC: NEPE 22:05
DX: T81.89XA Other complications of procedures, not elsewhere classified, initial encounter (principal); Z08 Encounter for follow-up examination after completed treatment for malignant neoplasm; Z85.820 Personal history of malignant melanoma of skin; F32.9 Major depressive disorder, single episode, unspecified; F17.200 Nicotine dependence, unspecified, uncomplicated
CPT/HCPCS: 99283

== ENCOUNTER 2017-07-13 18:27 | Emergency (ER) | payer MEDICARE, OTHER ==
[~2017-07-13] VITALS: Ht 157.5 cm; Wt 75.2 kg
[~2017-07-13 18:27] MED LIST changes: -BACT800T5 PO; -CEPH-460 PO; +MUPI2%T TOPICAL
[2017-07-13 18:35] VITALS: BP 156/87; PULSE 100; RESP 16; TEMP 98.8; O2SAT 98
--- NOTE | 2017-07-13 19:08 | PD ---
HPI Chief Complaint: Skin Problem Time Seen by Provider: 18:50 Travel History International Travel<30 days: No Contact w/Intl Traveler<30days: No Traveled to known affect area: No History of Present Illness HPI 36-year-old female here with boyfriend complaining of diffuse pruritic rash for 2 days. States that her boyfriend was diagnosed with ringworm and thinks she got ringworm too. States that they have spread diffusely to her arms and legs. She says that they are intensely pruritic and has been scratching multiple areas of her body causing scabbing. She denies illicit drug use, new medications, recent travel, new soaps. She has not tried any [id number] medications for this. She has a recent history of melanoma with excision and is due to have chemotherapy soon. Otherwise has a history of high blood pressure. Denies fever, chills, chest pain, short of breath. PFSH Past Medical History Asthma: No Blood Disorders: No Anxiety: No Depression: Yes Heart Rhythm Problems: No Cancer: Yes (melinoma skin CA) Cardiovascular Problems: No High Cholesterol: No Chemotherapy: No Chest Pain: No Congestive Heart Failure: No COPD: No Diabetes: No Diminished Hearing: No Endocrine: No Gastrointestinal Disorders: No Genitourinary: No Hepatitis: No Hiatal Hernia: No Hypertension: No Immune Disorder: No Implanted Vascular Access Dvce: No Musculoskeletal: No Neurologic: No Psychiatric: No Reproductive: No Respiratory: No Radiation Therapy: No Sleep Apnea: No Thyroid Disease: No Tetanus Vaccination: > 5 Years Influenza Vaccination: No ?: Not LMP: 07/02/17 : 6 Para: 4 Miscarriage: 1 : 1 Tubal Ligation: Yes Past Surgical History Abdominal Surgery: No AICD: No Body Medical Devices: NONE Cardiac Surgery: No Section: Yes (X4) Ear Surgery: No Endocrine Surgery: No Eye Surgery: No Genitourinary Surgery: No Gynecologic Surgery: Yes ( X4, TUBAL) Joint Replacement: No Neurologic Surgery: No Oral Surgery: No Pacemaker: No Thoracic Surgery: No Tonsillectomy: Yes Other Surgery: Yes (MELENOMA REMOVED 04/08/17 to left upper arm with lymph nodes removed) Social History Alcohol Use: No Tobacco Use: Yes (1.5 ppd) Substance Use: No Allergies-Medications (Allergen,Severity, Reaction): Coded Allergies: No Known Allergies (Verified , 07/13/17) Reported Meds & Prescriptions Reported Meds & Active Scripts Active Keflex (Cephalexin) 500 Mg Cap 500 Mg PO Q8H 7 Days Permethrin Topical 5% (Permethrin) 5% Cream 1 Applic TOPICAL ONCE Apply head to toe and leave on for 8-12 hours. Rinse off may repeat in one week if lesion still present. Physical Exam Narrative GENERAL: Well-nourished, well-developed patient. SKIN: Focused skin assessment warm/dry. Multiple papules ranging from 5 mm to 1 -1/2 cm, erythematous over bilateral upper and lower extremities. Excoriations present without cellulitis component. No burrows noted in the skin. HEAD: Normocephalic. EYES: No scleral icterus. No injection or drainage. NECK: Supple, trachea midline. No JVD or lymphadenopathy. GASTROINTESTINAL: Abdomen soft, non-tender, nondistended. MUSCULOSKELETAL: No cyanosis, or edema. BACK: Nontender without obvious deformity. No CVA tenderness. Data Data Last Documented VS Vital Signs Date Time Temp Pulse Resp B/P (MAP) Pulse Ox O2 Delivery O2 Flow Rate FiO2 07/13/17 18:54 16 07/13/17 18:35 98.8 100 156/87 (110) 98 Orders Orders Ed Discharge Order (07/13/17 19:13) MDM Medical Decision Making Medical Screen Exam Complete: Yes Emergency Medical Condition: Yes Differential Diagnosis Scabies versus contact dermatitis versus allergic dermatitis Narrative Course 28-year-old female with a 2 day history of intensely pruritic lesions upper and lower extremities that have multiplied. She states that the rash has become increasingly pruritic and concerned that this is ringworm because she states that her boyfriend was diagnosed with ringworm. Physical exam revealed multiple papules upper and lower extremities with areas of confluence. Excoriations present with with scabbing. Permethrin topical and antibiotics prescribed. Unsure when patient will have a follow-up with her primary care physician and concern for developing cellulitis. Advised this condition is contagious. Return to emergency department if signs and symptoms persist or worsen. Diagnosis Primary Impression: Scabies infestation Referrals: Cardiac Cath Tech Primary Care Physician Additional Instructions: Use permethrin as prescribed. Use antibiotics as prescribed If lesions worsen or persists return to the emergency department further treatment Clean all linens and bedding in hot water with bleach produced possibility of continued infection infestation Return to regular physician further treatment evaluation Scripts Cephalexin (Keflex) 500 Mg Cap 500 MG PO Q8H for Infection for 7 Days, #21 CAP 0 Refills Prov: Brian Velasquez MD 07/13/17 Permethrin Topical 5% (Permethrin Topical 5%) 5% Cream 1 APPLIC TOPICAL ONCE for Scabies, #1 TUBE 1 Refill Apply head to toe and leave on for 8-12 hours. Rinse off may repeat in one week if lesion still present. Prov: Brian Velasquez MD 07/13/17 Disposition: 01 DISCHARGE HOME Condition: Stable Celia Ramirez Jul 13, 2017 19:08
[2017-07-13] MEDS ORDERED: PERM5CRE TOPICAL (19:09)
[2017-07-13] MEDS ORDERED: CEPH-460 PO (19:12)
== END 2017-07-13 19:20 | disposition home or self-care (01) ==
LOC: PHEFT 18:27
DX: B86 Scabies (principal)
CPT/HCPCS: 99284

== ENCOUNTER 2017-08-10 06:54 | Day surgery (SDC) | payer MEDICARE, OTHER ==
[~2017-08-10] VITALS: Ht 157.5 cm; Wt 75.9 kg
[2017-08-10] VITALS (7 sets, daily range): BP systolic 94–161; BP diastolic 64–92; PULSE 89–113; RESP 20; TEMP 97.5–97.6; O2SAT 94–98
[~2017-08-10 06:54] MED LIST changes: +BENZ100 PO; +CEPH-460 PO; -MUPI2%T TOPICAL; +PERM5CRE TOPICAL; +PRED-503 PO; +VENTAER INH
[2017-08-10 07:39] LABS: AUTOMATED NEUTROPHIL # 4.7 TH/MM3 (1.8-7.7); BASOPHIL # 0.1 TH/MM3 (0-0.2); BASOPHIL % 0.7 % (0.0-2.0); EOSINOPHIL # 0.8 TH/MM3 (0-0.4); HEMATOCRIT 38.4 % (35.0-46.0); HEMO FLAGS DIFF FINAL; LYMPHOCYTE # 2.5 TH/MM3 (1.0-4.8); MEAN CELL VOLUME 89.3 FL (80.0-100.0); MEAN CORPUSCULAR HEMOGLOBIN 30.6 PG (27.0-34.0); MEAN CORPUSCULAR HGB CONC 34.2 % (32.0-36.0); MONO % 7.4 % (0.0-8.0); NEUT % 53.9 % (16.0-70.0); PLATELET COUNT 507 TH/MM3 (150-450); RED CELL DISTRIBUTION WIDTH 13.6 % (11.6-17.2); WHITE BLOOD COUNT 8.8 TH/MM3 (4.0-11.0)
[2017-08-10 07:44] LABS: INTERNATIONAL NORMALIZED RATIO 0.9 RATIO
[2017-08-10] MEDS ORDERED: SODIUM CHLORIDE 0.9% 1000 ML IV SCH (07:45)
[2017-08-10] MEDS ORDERED: POVIDONE IODINE 5% (ANTISEPSIS KIT) 4 APPLICATIONS EACH NARE SCH (07:45)
[2017-08-10] MEDS ORDERED: ceFAZolin 2 GM PREMIX 50 ML - implanted port/tunneled catheter insertion IV SCH (07:45)
[2017-08-10] MEDS ORDERED: CHLORHEXIDINE GLUCONATE 2 % 1 PACK (2 CLOTHS) TOPICAL SCH (07:45)
[2017-08-10] MEDS ORDERED: VANCOMYCIN 1000 MG/NS 250 ML - implanted port/tunneled catheter IV SCH ×2 (07:45)
[2017-08-10] MEDS ORDERED: MIDAZOLAM HCL 5 MG/5 ML VIAL ONE (08:04)
[2017-08-10] MEDS ORDERED: LIDOCAINE 1%/EPINEPHrine 1:100,000 SOLN 20 ML VIAL ONE ×2 (08:36→09:11)
[2017-08-10] MEDS ORDERED: SODIUM CHLORIDE 0.9% FLUSH 10 ML FLUSH IVF PRN (09:30)
--- NOTE | 2017-08-10 09:31 | PD.RAD ---
Post Procedure Progress Note Pre Procedure Diagnosis: (1) Malignant melanoma Post Procedure Diagnosis: (1) Malignant melanoma Procedure Date: Aug 10, 2017 Supervising Radiologist: Arnoldo Zheng Proceduralist/Assist: RT Jj(R) Anesthesia: Local, Conscious Sedation Plan of Activity Patient to Unit: [facility] Patient Condition: Good See PACS Report for procedural detail/treatment Central Venous Access Device Procedure 1 Right Internal Jugular Infusaport Placement single lumen [place]: 8 Arnoldo Zheng MD Aug 10, 2017 09:31
--- NOTE | 2017-08-10 10:19 | RADRPT ---
EXAM DATE/TIME: 08/10/2017 08:29 [facility] COMPARISON: No previous studies available for comparison. INDICATIONS : Patient presents with Melanoma in need of port placement for treatment. MEDICAL HISTORY : Depression Seizures Melanoma SURGICAL HISTORY : Tubal ligation Upper extremity Lymph node removal Tonsillectomy ENCOUNTER: Initial ACUITY: 4-6 months PAIN SCORE: 0/10 LOCATION: N/A FLUORO TIME: 0.6 minutes IMAGE SERIES: 1 SEDATION TIME: 45 minutes ACCESS: Right internal jugular vein SEDATION: 1.) 3 mg midazolam (Versed) IV 2.) 150 mcg fentanyl (Sublimaze) IV Prophylactic antibiotics were administered with appropriate pre-procedure timing. Vancomycin within 2 hours of procedure, Ancef (or alternative) within 1 hour of procedure. DEVICE: 1. [address] [place] single lumen Smart Port CT PROCEDURE : 1. Continuous pulse oximetry and EKG monitoring. 2. Intravenous conscious sedation. 3. Ultrasound guidance for venous access. 4. Fluoroscopic guided implantable central venous port placement. The patient was placed supine. The neck was prepped in sterile fashion. Full sterile technique was u sed, including cap, mask, sterile gloves and gown, and a large sterile sheet. Hand hygiene and 2% ch lorhexidine Betadine was utilized per protocol for cutaneous antisepsis with appropriate dry time for site. Sterile gel and sterile probe cover were utilized for ultrasound guidance. The skin and sub cutaneous tissues were infiltrated with local anesthetic solution. Under direct ultrasound guidance, central venous access was accomplished in the targeted vessel. The ultrasound images depicting access guidance were stored and saved to PACS for permanent record. A s ubcutaneous pocket was created using blunt dissection. The port was introduced to the pocket. The c atheter tubing was fed through a subcutaneous tunnel to the venotomy site. The catheter tubing was c ut to a suitable length and then was introduced through a valved Peel-Away sheath and positioned with catheter tubing tip at the cavo-atrial junction level. The pocket incision was closed with subcutic ular Vicryl suture. Steri-Strips were applied. The port was flushed and locked with heparin solutio n per protocol. Sterile dressing was applied to the site. The patient tolerated the procedure well. Conscious sedation was performed with the prescribed dosages and duration as above in the presence of an independent trained radiology nurse to assist in the monitoring of the patient. EKG and oximetry remained stable throughout the procedure. The patient tolerated the procedure well and there were no complications. The patient was sent to post anesthesia recovery in stable condition. CONCLUSION: Uncomplicated ultrasound and fluoroscopic guided implanted central venous port catheter placement as described in detail above. An 8 Syriac Power port was placed. Arnoldo Zheng MD on August 10, 2017 at 10:17 Board Certified Radiologist. This report was verified electronically.
== END 2017-08-10 11:25 | disposition home or self-care (01) ==
LOC: HROP 06:54 → HRIP 06:55 → HROP 11:25
PROVIDERS: ATTEND Internal Medicine
DX: Z45.2 Encounter for adjustment and management of vascular access device (principal); C43.9 Malignant melanoma of skin, unspecified; Z01.812 Encounter for preprocedural laboratory examination
CPT/HCPCS: 36561; 76937; 77001; 85025; 85610; 85730; 99152; 99153; C1788; J0690; J1642; J2250; J3010; J3370; J7030; J7050

== ENCOUNTER 2017-09-22 09:22 | Day surgery (SDC) | payer MEDICARE, OTHER ==
[~2017-09-22 09:22] MED LIST changes: -BENZ100 PO; -CEPH-460 PO; -PERM5CRE TOPICAL
[2017-09-22 09:40] VITALS: BP 127/90; PULSE 81; RESP 20; TEMP 97.7; O2SAT 97
--- NOTE | 2017-09-22 11:42 | PD.RAD ---
Radiology Note Patient sent to evaluate port. Erythema and slight discharge from lateral aspect of port incision. Area prepped and draped then anesthetized with lidocaine. Eschar over abnormal lateral aspect of incision removed to evaluate for retained stitch material. None was found. Area debrided and dressed with triple abx ointment. Skin edges apposed with steri-strips. Initial dose of Bactrim DS given in [facility] and prescription for 10-day course of the same given to pt. Port area itself is otherwise OK. Hope to preserve access with treatment. If dermatitis persists, will have to remove port. Owen Keller MD Sep 22, 2017 11:42
[2017-09-22] MEDS ORDERED: BACITRACIN TOP OINT 15 GM TUBE TOPICAL ONE (12:00)
[2017-09-22] MEDS ORDERED: SULFAMETHOXAZOLE-TRIMETHOPRIM DS 800-160 MG TAB PO ONE (12:00)
--- NOTE | 2017-09-23 13:05 | RADRPT ---
EXAM DATE/TIME: 09/22/2017 00:00 [facility] COMPARISON: No previous studies available for comparison. INDICATIONS : Patient with history of melanoma in need of [id number] evaluation. MEDICAL HISTORY : Melanoma SURGICAL HISTORY : Melanoma removed on left upper arm ENCOUNTER: Subsequent ACUITY: 1 week PAIN SCORE: 7/10 LOCATION: Port site FLUORO TIME: IMAGE SERIES: PROCEDURE : Evaluate and debride the [id number] suture line The patient was placed supine. Port area was prepped and draped in usual sterile fashion and anesthet ized with approximately 3 cc 1% Xylocaine. The eschar over the lateral aspect of the port was removed to evaluate for possible retained each material. None was found. The lateral aspect of the port sutu re line was erythematous with a slight discharge. Area was debrided. The skin edges were closed with Steri-Strips and the area dressed with topical triple antibiotic. Patient will be placed on a course of p.o. Bactrim x10 days.. CONCLUSION: 1. Uncomplicated evaluation of port suture line as above. 2. Patient placed on a 10 day course of Bactrim. We'll reevaluate the port pocket sometime next week. Owen Keller MD on September 23, 2017 at 12:59 Board Certified Radiologist. This report was verified electronically.
== END 2017-09-22 11:10 | disposition home or self-care (01) ==
LOC: HROP 09:22 → HRIP 09:23 → HROP 11:10
PROVIDERS: ATTEND Internal Medicine
DX: Z45.2 Encounter for adjustment and management of vascular access device (principal); C43.9 Malignant melanoma of skin, unspecified